=== PATIENT | male | born 1955 | race African-American/Black ===

== ENCOUNTER 2016-10-13 10:50 | Emergency (ER) | payer MEDICARE, OTHER ==
--- OUTSIDE RECORDS SUMMARY | 2016-10-13 11:53 | XMS REPORT | Continuity of Care Document ---
:1955 Author Organization [facility] ([facility]) Address [address] [place] [address] Phone [phone] Support Name Relationship Address Phone Unavailable Unavailable 506 08/01 [phone] [place] [address] Unavailable [place] Unavailable [phone] Care Team Providers Name Role Phone Leonel Medina Primary Care Provider [phone] Source Comments This disclosure is being made pursuant to the Care Everywhere program, applicable federal and state laws, and may not contain all informaitonavailable regarding this patient.[facility] ([facility]) Active Allergies and Adverse Reactions Allergen Noted Date Severity Reactions Comments Octreotide 08/12/2016 OTHER Abdominal pain, body sweats, near syncope Current Medications Prescription Sig. Disp. Refills Start Date End Date Status tiotropium Use 18 mcg by Active (SPIRIVA) 18 mcg inhalation daily. inhalation capsule fluticasone 50 use 2 Sprays into Active mcg/Actuation the nose daily as nasal spray needed. Indications: ALLERGIC RHINITIS magnesium Take 10 mL by Active hydroxide (MILK mouth daily as OF MAGNESIA needed. CONCENTRATE) Indications: 2,400 mg/10 mL CONSTIPATION suspension omeprazole 40 mg Take 1 capsule (40 40 capsule 3 05/22/2015 Active enteric coated mg total) by mouth capsule daily ALPRAZolam 0.5 mg Take 1 tablet (0.5 30 tablet 0 06/29/2015 Active tablet mg total) by mouth at bedtime as needed HYDROcodone-aceta Take 1 tablet by 0 10/22/2015 Active minophen 7.5-325 mouth every 8 mg per tablet hours as needed. potassium Take 10 mEq by Active chloride 10 mEq mouth as needed XR tablet (With bumetanide). SYMBICORT 160-4.5 Use 1 Puff by 5 01/04/2016 Active mcg/Actuation inhalation 2 times inhaler daily. bumetanide 2 mg Take 0.5 tablets 30 tablet 11 04/14/2016 Active tablet (1 mg total) by mouth every 3 days as needed. ,or as instructed by physician. ferrous sulfate Take 1 tablet (325 90 tablet 11 05/17/2016 Active 325 mg (65 mg mg total) by mouth iron) tablet 3 times daily. hydrALAZINE 25 mg Take 1 tablet (25 60 tablet 11 06/01/2016 Active tablet mg total) by mouth 2 times daily. amLODIPine 10 mg Take 1 tablet (10 30 tablet 11 06/13/2016 Active tablet mg total) by mouth daily. sildenafil 20 mg Take 2 tablets (40 180 tablet 3 06/27/2016 Active tablet mg total) by mouth 3 times daily. amoxicillin 500 Take 4 capsules 8 capsule 3 08/29/2016 Active mg capsule (2,000 mg) one hour before any dental exam or procedure. docusate 100 mg Take 100 mg by Active capsule mouth 2 times daily as needed. piperacillin-tazo Inject 13.5 g 09/09/2016 Active bactam (ZOSYN) intravenously 13.5 g continuous every 24 hours. infusion aspirin 325 mg Take 1 tablet (325 90 tablet 2 09/09/2016 Active tablet mg total) by mouth daily. warfarin 4 mg As directed by Active tablet ACMS ondansetron 4 mg Take 4 mg by mouth 5 08/26/2016 Active tablet every 8 hours as needed. warfarin 4 mg Take 2 tablets (8 60 tablet 0 08/19/2016 09/20/19 Discontinued tablet mg total) by mouth 17 every evening. Active Problems Patient Care Coordination Note GOALS OF CARE AND TREATMENT PREFERENCES Patients Communication Style/Preference per patient: Diagnosis:Thrombosed LVAD placement 11-27-14 Prognosis: Days to weeks to months Goal(s) of Care: Undecided at this time. Patient and family are trying to process terminal list of thrombosed LVAD and reality that there are no other treatment options at this time Is the patient an inpatient? Yes. How did the team arrive at the current code status? spoke with patient and family Code status is: Full code Additional remarks: Medical team has told patient that resuscitation would cause more harm than benefit but patient still wishes to BE full code Patient unable to have compressions because of LVAD patient also has defibrillator placed Patient able to make own decisions?: Yes Additional comments: patient would like to go home and care but without support of hospice this will need to be continued discussion Patient's Goals of Care and communication style preference were communicated to attending staff. GOALS OF CARE AND TREATMENT PREFERENCES Diagnosis: Stage D, Class 4 HF due to nonischemic cardiomyopathy Prognosis: Months to a year without MCS Goal(s) of Care: To live longer to be able to see his grandchildren grow up and graduate highschool. He would like to be less symptomatic and be able to stay out of the hospital. He realizes this is a disease that will likely lead to his . He was hoping to live at least another 10 years. He wants to spend as much time with his who he adores. Problem Noted Date Elevated LDH 09/08/2016 Pseudomonas infection 04/29/2016 Overview: 04/13 - rare pseudomonas of driveline culture AVM (arteriovenous malformation) of small bowel, acquired with hemorrhage Anemia due to blood loss, acute 09/15/2015 Syncope 09/14/2015 Chronic gastrointestinal hemorrhage 08/30/2015 Biventricular ICD (implantable cardioverter-defibrillator) in place - 2014 [employer] Overview: Programmed DDD 50- 130 bpm, RV pacing only. Implant Physician: Dr. Macias Implant date: 07/28/15 Hypocalcemia 02/07/2015 Hypoalbuminemia due to protein-calorie malnutrition 02/07/2015 Severe protein-calorie malnutrition 02/07/2015 Left ventricular assist device (LVAD) complication 12/16/2014 Overview: Admit 12/16/14 for Intermacs Related complication - Possible VAD thrombosis History of DVT (deep vein thrombosis) 12/05/2014 Overview: Dx by Venous doppler on 09/16/14: Right IJ DVT LVAD (left ventricular assist device) present 12/01/2014 Long-term (current) use of anticoagulants, INR goal 1.8 - 2.5 (New goal 2014 set on 02/21/2015) ACC/AHA stage D heart failure 11/05/2014 Overview: On home Dobutamine at 5 mcg/kg/min for RV failure post LVAD implantation; off now. Restrictive lung disease 11/05/2014 Overview: Dx by PFT on 04/13 Pulmonary hypertension due to left heart disease 04/15/2014 Medication intolerance 04/15/2014 Overview: Losartan, spironolactone, BiDil - renal failure, hypotension (due to low cardiac output, cardiorenal syndrome) Anxiety 04/15/2014 LBBB (left bundle branch block) 04/15/2014 Gout 04/15/2014 Overview: Not crystal proven. His serum uric acid was 9.3 in October 2012. He was taking allopurinol 200 mg daily at home (per PCP). Tobacco use disorder 04/15/2014 Paroxysmal ventricular tachycardia 01/14/2014 Hepatitis C 08/15/2013 Overview: Formatting of this note may be different from the original. Prescribed Regimen: Sofosbuvir (Sovaldi) and Simeprevir (Olysio) Hepatitis C Genotype: 1a Duration of Therapy: 12 weeks Start Date: 12/09/13 End Date: 03/05/14 Laboratory Monitoring HCV RNA: HCV QUANT, IU/mL (IU/mL) Date Value 02/24/2014 (External) NOT DETECTABLE 02/17/2014 (External) NOT DETECTABLE 02/11/2014 (External) <15 02/04/2014 (External) NOT DETECTABLE 12/09/2013 [id number] 10/31/2013 [id number] HCV QUANT, LOG IU/mL (LOG IU) Date Value 02/11/2014 (External) <1.18 02/04/2014 (External) NOT DETECTABLE 12/09/2013 7.14 10/31/2013 7.31 CKD (chronic kidney disease) stage 3, GFR 30-59 ml/min 08/15/2013 Hypertension, benign 02/12/2013 Chronic combined systolic and diastolic heart failure 08/07/2012 Non-ischemic cardiomyopathy 07/12/2011 Overview: Patient reports "heart disease" since 1993 First low LVEF noted by RNV 04/2001=40-45% Heavy exposure to IV cocaine; not since 2003 by report 04/2011 SPECT Large inferior myocardial scar, moderate anteroapical myocardial scar, LVEF 22% RHC 04/09/2014 ([facility]): RA 12, RV 70/9/20, PA 75/34/52, PCW 30, Ao 104/69, PAsat 36%, TCO/I 1.75/0.87, SALOME/I 2.63/1.3 Coronary Angiogram 04/09/2014 ([facility]): Normal epicardial coronary arteries MUGA 04/08/2014 ([facility]): LVEF 17% Resolved Problems Problem Noted Date Resolved Date Subtherapeutic international normalized ratio (INR) 04/05/2016 04/09/2016 Melena 03/24/2016 08/08/2016 Acute upper GI bleed 09/15/2015 10/27/2015 Gastrointestinal hemorrhage 08/24/2015 08/30/2015 Acute GI bleeding 06/15/2015 06/19/2015 Chronic cholecystitis 05/06/2015 05/22/2015 Melena 05/02/2015 05/22/2015 Acute blood loss anemia 05/02/2015 06/19/2015 Acute cholecystitis 02/13/2015 06/15/2015 RUQ abdominal pain 02/12/2015 06/15/2015 Hypokalemia 02/07/2015 05/22/2015 Hyperkalemia 02/06/2015 02/07/2015 Metabolic acidosis, normal anion gap (NAG) 02/06/2015 02/07/2015 Syncope and collapse 02/06/2015 03/23/2015 Hospice care 12/25/2014 02/07/2015 Leukocytosis, unspecified 12/17/2014 02/07/2015 Increased anion gap metabolic acidosis 12/17/2014 02/07/2015 Metabolic alkalosis 12/17/2014 02/07/2015 Acute on chronic systolic CHF (congestive heart failure) 12/17/20142014 Palliative care encounter 12/17/2014 02/07/2015 Goals of care, counseling/discussion 12/17/2014 02/07/2015 ADAM (acute kidney injury) 12/13/2014 02/07/2015 Hyperkalemia 12/01/2014 12/13/2014 Overview: Monitor and treat Hyponatremia 12/01/2014 02/07/2015 Overview: monitor Acute blood loss anemia 12/01/2014 02/07/2015 Overview: Monitor and transfuse as necessary Cardiogenic shock 12/01/2014 12/13/2014 Overview: Continue with inotropic support Encounter for screening colonoscopy 11/18/2014 02/07/2015 Acute on chronic systolic congestive heart failure 11/13/2014 02/07/2015 Supratherapeutic INR 11/13/2014 12/13/2014 Acute deep venous thrombosis 11/05/2014 11/06/2014 Overview: DVT of Rt IJ - Dx by Vascular US on 09/14. 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 No formal assessment for PAH Most Recent Encounters Date Type Specialty Providers Description 10/11/2016 Telephone Heart and Vascular Bere Cleaning, Dx: Anemia due to RN blood loss, acute (Primary Dx) 10/10/2016 Telephone Heart and Vascular Artis Castillo RN Dx: Anemia due to blood loss, acute (Primary Dx) 10/10/2016 Telephone Pharmacy Yamilex Delcid Dx: LVAD (left L, RPH ventricular assist device) present (Primary Dx) 10/07/2016 Office Visit Med Infectious Jeyson Cerda, Dx: LVAD (left Disease MD ventricular assist device) present (Primary Dx) 10/07/2016 Telephone Business Librarian Genesis Amador, Chief Comp: Home Care MEDIA SERVICES COORDINATOR 10/07/2016 Telephone Med Infectious Jeyson Cerda, Chief Comp: Disease MD Medication Management 10/06/2016 Telephone Pharmacy Yamilex Delcid Dx: LVAD (left L, RPH ventricular assist device) present (Primary Dx) 10/03/2016 Telephone Pharmacy Giselle Rankin Dx: LVAD (left E, RPH ventricular assist device) present (Primary Dx) 10/03/2016 Telephone Heart and Vascular Angella Craig Chief Comp: Appointment Info 10/03/2016 Telephone Pharmacy Shahla Berger Dx: LVAD (left M ventricular assist device) present 09/30/2016 Telephone Heart and Vascular Marj Dozier Chief Comp: Review Of L, RN Concerns 09/29/2016 Telephone Pharmacy Giselle Rankin Dx: LVAD (left E, RPH ventricular assist device) present (Primary Dx) 09/27/2016 Telephone Heart and Vascular Marj Dozier RN 09/26/2016 Office Visit Heart and Vascular Sunshine Quintero Dx: LVAD (left J, BOND MANAGER ventricular assist device) present 09/26/2016 [facility] Heart and Vascular Sunshine Quintero Dx: Non-ischemic Encounter J, BOND MANAGER cardiomyopathy Default, Other (Primary Dx) Clara Azul MD 09/26/2016 Office Visit Heart and Vascular Rishi Parada MD Dx: Left ventricular assist device (LVAD) complication, subsequent encounter (Primary Dx) 09/26/2016 Telephone Pharmacy Giselle Rankin Dx: LVAD (left E, RPH ventricular assist device) present (Primary Dx) 09/23/2016 Telephone Pharmacy Giselle Rankin Dx: LVAD (left E, RPH ventricular assist device) present (Primary Dx) 09/20/2016 Telephone Pharmacy Liv Gomez Dx: LVAD (left L, RPH ventricular assist device) present (Primary Dx) 09/19/2016 Telephone Heart and Vascular Artis Castillo RN Dx: LVAD (left ventricular assist device) present (Primary Dx) 09/19/2016 Telephone Pharmacy Yamilex Delcid Dx: LVAD (left L, RPH ventricular assist device) present (Primary Dx) 09/19/2016 Telephone Heart and Vascular Angella Craig Chief Comp: Appointment Info 09/16/2016 Telephone Pharmacy Stephanie Green Dx: LVAD (left RPH ventricular assist device) present (Primary Dx) 09/13/2016 [facility] Radiology Andres Zuleta MD Chief Comp: Patient Encounter Reported Reason For Visit 09/12/2016 Hospital Radiology Andres Zuleta MD Chief Comp: Patient Encounter Reported Reason For Visit 09/12/2016 [facility] Heart and Vascular Sunshine Quintero Dx: Pseudomonas Encounter J, BOND MANAGER infection 09/12/2016 Telephone Pharmacy Stephanie Green Dx: LVAD (left RPH ventricular assist device) present (Primary Dx) 09/12/2016 Telephone Heart and Vascular Bere Cleaning, Chief Comp: service station helper Question 09/12/2016 Orders/Notes Heart and Vascular Marj Dozier Dx: Non- ischemic Tanner, RN cardiomyopathy (Primary Dx) 09/12/2016 Orders Only Radiology Peng Gamboa Dx: Anemia due to MD Radha blood loss, acute 09/06/2016 [facility], Chief Comp: Patient Encounter MD Reported Reason For Zaire Jordan, Visit Cecilia Jasso DO 09/05/2016 - [facility], Dx: Left ventricular 09/09/2016 Encounter Inpatient - Adult MD assist device (LVAD) Zaire Jordan, complication, initial MD encounter (Primary Sistla, Dx) MD Marybeth 09/05/2016 Office Visit Gui Conway DDS Chief Comp: Patient Reported Reason For Visit 09/05/2016 Office Visit Heart and Vascular Sunshine Quintero Dx: LVAD (left J, BOND MANAGER ventricular assist Clara Arndt, device) present 09/01/2016 Telephone Pharmacy Liv Gomez Dx: LVAD (left L, RPH ventricular assist device) present (Primary Dx) 08/31/2016 Office Visit Heart and Vascular Sunshine Quintero Dx: Left ventricular J, BOND MANAGER assist device (LVAD) complication, subsequent encounter 08/29/2016 Refill Heart and Vascular Artis Castillo RN Dx: Need for SBE (subacute bacterial endocarditis) prophylaxis (Primary Dx) 08/29/2016 Telephone Pharmacy Giselle Rankin Dx: LVAD (left E, RPH ventricular assist device) present (Primary Dx) 08/26/2016 Telephone Heart and Vascular Marj Dozier Chief Comp: Follow-up Tanner RN 08/25/2016 Telephone Pharmacy Yamilex Delcid Dx: LVAD (left L, RPH ventricular assist device) present (Primary Dx) 08/24/2016 Telephone Heart and Vascular Bere Cleaning, Chief Comp: Follow-up RN 08/24/2016 Telephone Heart and Vascular Bere Cleaning, Chief Comp: python django developer Results 08/24/2016 Telephone Pharmacy Giselle Rankin Dx: LVAD (left E, RPH ventricular assist device) present (Primary Dx) 08/23/2016 Nurse Triage General Care Candi Roe Chief Comp: IP 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, 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 Follow-up Call 08/23/2016 Telephone Heart and Vascular Bere Cleaning, Chief Comp: Follow-up RN 08/22/2016 Telephone Pharmacy Giselle Rankin Dx: LVAD (left E, RPH ventricular assist device) present (Primary Dx) 08/17/2016 Pharmacy Visit 08/13/2016 Telephone Heart and Vascular Bere Cleaning, Chief Comp: RN Disruptive Behavior 08/11/2016 - [facility] Randy Miller Dx: Anemia due to 08/19/2016 Encounter Inpatient - Adult MD Isatu blood loss, acute AdhadDaniel guo, (Primary Dx) Gabriella Washington MD 08/11/2016 Office Visit Dentistry Dx: LVAD (left ventricular assist device) present 08/11/2016 Office Visit Heart and Vascular Clara Arndt, Dx: LVAD (left MD ventricular assist Schadler, Sunshine device) present TEODORA Baugh 08/11/2016 Telephone Heart and Vascular Bere Cleaning, Chief Comp: Patient RN Concern 08/10/2016 Nurse Triage General [facility] Leila Heard, Chief Comp: 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 Follow-up Call 08/09/2016 Telephone Pharmacy Giselle Rankin Dx: LVAD (left E, RPH ventricular assist device) present (Primary Dx) 08/09/2016 Telephone Heart and Vascular Bere Cleaning, Dx: LVAD (left RN ventricular assist device) present (Primary Dx) 08/08/2016 Nurse Triage Med GI/Hepatology Ramirez Brewer Chief Comp: Post -op V, RN Follow-up Call 08/08/2016 Pharmacy Visit 08/07/2016 Telephone Heart and Vascular Artis Castillo RN Chief Comp: Other 08/04/2016 - [facility] Steve Walter, Dx: Non-ischemic 08/08/2016 Encounter Inpatient - Adult cardiomyopathy Dina (Primary Dx) Nieves Prieto MD 08/03/2016 Telephone Heart and Vascular Bere Cleaning, Dx: Anemia due to RN blood loss, acute (Primary Dx) 08/02/2016 Telephone Pharmacy Giselle Rankin Dx: LVAD (left E, RPH ventricular assist device) present (Primary Dx) 07/29/2016 Telephone Pharmacy Giselle Rankin Dx: LVAD (left E, RPH ventricular assist device) present (Primary Dx) 07/29/2016 Telephone Heart and Vascular Bere Cleaning, Chief Comp: python django developer Results 07/27/2016 Office Visit Heart and Vascular Sunhsine Quintero Dx: LVAD (left J, BOND MANAGER ventricular assist Cotarlan, device) present MD Kwesi 07/27/2016 Telephone Pharmacy Giselle Rankin Dx: LVAD (left E, RPH ventricular assist device) present (Primary Dx) 07/27/2016 Refill Pharmacy Giselle Rankin Dx: LVAD (left E, RPH ventricular assist device) present (Primary Dx) 07/21/2016 Telephone Pharmacy Yamilex Delcid Dx: LVAD (left L, RPH ventricular assist device) present (Primary Dx) 07/18/2016 Telephone Pharmacy Giselle Rankin Dx: LVAD (left E, RPH ventricular assist device) present (Primary Dx) 07/18/2016 Telephone Heart and Vascular Marlene Herrmann, Dx: Long-term RN (current) use of anticoagulants, INR goal 1.8 - 2.5 (New goal set on 02/21/2015) (Primary Dx) Immunizations Name Dates Previously Given Next Due Influenza 05/10/2012,07/15/2005 Influenza, quadrivalent PF 05/19/2016,05/06/2015 Influenza, unspecified 05/31/2012 Pneumococcal, unspecified 06/01/2015,04/30/2011 Td, adsorbed 12/21/2000 Tetanus Toxoid, unspecified 07/31/2006 Social History Tobacco Use Types Packs/Day Years Used Date Current Some Day Smoker Cigarettes 0.25 23 Smokeless Tobacco: Never Used Tobacco Cessation:Counseling Given: Yes Comments: Alcohol Use Drinks/Week oz/Week Comments No Last Filed Vital Signs Vital Sign Reading Time Taken Blood Pressure 105/84 10/07/2016 9:48 AM COMPUTER CONSULTANT Pulse 80 10/07/2016 9:48 AM COMPUTER CONSULTANT Temperature 36.3 C (97.3 F) 10/07/2016 9:48 AM COMPUTER CONSULTANT Respiratory Rate 18 09/09/2016 9:00 AM COMPUTER CONSULTANT Height 1.778 m (5' 10") 09/05/2016 8:29 PM COMPUTER CONSULTANT Weight 85.5 kg (188 lb 7.9 oz) 10/07/2016 9:48 AM COMPUTER CONSULTANT Body Mass Index 27.05 10/07/2016 9:48 AM COMPUTER CONSULTANT Oxygen Saturation 98% 09/26/2016 9:29 AM COMPUTER CONSULTANT Plan of Care Date Type Specialty Providers Description 10/24/2016 Appointment Heart and Vascular Sunshine Quintero Dx: LVAD (left J, BOND MANAGER ventricular assist [address] device) [place] [address] [phone] (Fax) 10/24/2016 Hospital Encounter Radiology Chief Comp: Patient Reported Reason For Visit 03/13/2017 Appointment Dentistry Chief Comp: Patient Reported Reason For Visit Health Maintenance Due Date Last Done Comments HCV Screening 1955 Hepatitis B Vaccine (1 of 3 1955 - Primary Series) Tdap Vaccine 1967 MMR Vaccine 1974 Pneumococcal Vaccine (1 of 1 1975 - PPSV23) Zoster Vaccine 2016 Prostate Cancer Screening 05/06/2016 05/06/2014 HCC Annual Coding End-Stage 07/31/2016 Liver Disease Td Vaccine 07/31/2016 07/31/2006, 12/21/2000 Lipid Disorder Screening 01/14/2020 01/13/2015 Colonoscopy 02/10/2025 02/10/2015, 11/24/2014 Influenza Vaccine: Seasonal Completed 05/19/2016, Additional history exists 05/06/2015, 05/31/2012 Results from Last 3 Months EXTERNAL CBC WITH DIFFERENTIAL (10/13/2016)Only the most recent of5 resultswithin the time period is included. Component Value Range Ext WBC Count 9.2 K/MM3 Ext RBC Count 2.76 M/MM3 Ext Hemoglobin 6.7 G/DL Ext Hematocrit 23.1 % Ext MCV (Mean Corpuscular Volume) 83.7 Ext MCH-Mean Corpuscular Hemoglobin 24.3 Ext MCHC-Mean Corpuscular Hgb Concentration 29.0 Ext Platelet Count 143 1-1001 K/MM3 Ext RDW-Red Cell Distribution Width 18.9 Ext Neutrophils 78.5(A) 100-49785 /MM3 Ext Lymphocytes 13.1(A) 100-82814 /MM3 EXTERNAL HEMOGLOBIN (10/11/2016)Only the most recent of6 resultswithin the time period is included. Component Value Range Ext Hemoglobin 10.2 G/DL EXTERNAL LIVER PANEL (10/10/2016)Only the most recent of2 resultswithin the time period is included. Component Value Range Ext Albumin 3.7 3.4-4.8 G/DL Ext ALP 123 40-129 U/L Ext AST 21 0-37 U/L Ext ALT 20 0-35 U/L Ext Bilirubin, Direct 0.1 0-0.2 MG/DL Ext Bilirubin, Total 0.4 0.2-1.0 MG/DL Ext Total Protein 8.4(A) 6.0-8.0 G/DL EXTERNAL BASIC METABOLIC PANEL (W/CALCIUM TOTAL) (10/10/2016)Only the most recent of2 resultswithin the time period is included. Component Value Range Ext Calcium 9.2 6-13 MG/DL Ext CO2 28.4 24-32 MEQ/L Ext Chloride 106 95-107 MEQ/L Ext Creatinine 1.10 0.7-1.4 MG/DL Ext Glucose 71 65-99 MG/DL Ext Potassium 5.0 3.5-5.0 MEQ/L Ext Sodium 144 135-145 MEQ/L Ext BUN 21.8(A) 10-20 MG/DL EXTERNAL INR (10/10/2016)Only the most recent of21 resultswithin the time period is included. Component Value Range Ext INR 2.3 DIFFERENTIAL (09/26/2016 9:27 AM)Only the most recent of3 resultswithin the time period is included. Component Value Range % Neutrophils-Auto Diff 77.7 % Neutrophils-Auto Diff 5340 7256-4423 /MM3 % Lymphocytes-Auto Diff 12.6 % Lymphocytes-Auto Diff 870(L) 875-3300 /MM3 % Monocytes-Auto Diff 8.3 % Monocytes-Auto Diff 570 130-860 /MM3 % Eosinophils-Auto Diff 0.7 % Eosinophils-Auto Diff 50 40-390 /MM3 % Basophils 0.6 % Basophils-Auto Diff 40 10-136 /MM3 % Immature Granulocytes-Auto Diff 0.1 % Immature Granulocytes-Auto Diff 10 /MM3 Specimen Whole Blood CBC (COMPLETE BLOOD COUNT) (09/26/2016 9:27 AM)Only the most recent of3 resultswithin the time period is included. Component Value Range WBC Count 6.9 3.7-10.5 K/MM3 RBC Count 4.56 4.50-6.20 M/MM3 Hemoglobin 11.1(L) 13.2-17.7 g/dL Hematocrit 38(L) 40-52 % MCV (Mean Corpuscular Volume) 84 82-99 FL MCH (Mean Corpuscular Hemoglobin) 24(L) 25-35 PG MCHC (Mean Corpuscular Hemoglobin Concentration) 29(L) 32-36 % Platelet Count 177 150-400 K/MM3 RBC Dist Width-STD 59.4(H) 35.1-43.9 FL RBC Distrib Width 19.7(H) 9.0-14.5 % Nucleated RBC 0 /100 WBC Specimen Whole Blood BLOOD CELL MORPHOLOGY (09/26/2016 9:27 AM)Only the most recent of10 resultswithin the time period is included. Component Value Range Schistocytes 1+ Tear Drop 1+ Large Platelet Present Giant Platelets Present Specimen Whole Blood PT/INR (PROTHROMBIN TIME/INR) VENOUS (09/26/2016 9:27 AM)Only the most recent of24 resultswithin the time period is included. Component Value Range PT (Prothrombin Time) 17(H) 9-12 secs INR 1.7 <4.0 Specimen Blood LACTATE DEHYDROGENASE (LDH) (09/26/2016 9:27 AM)Only the most recent of21 resultswithin the time period is included. Component Value Range LDH 340(H) 135-225 U/L Specimen Blood HEPATIC FUNCTION PANEL (09/26/2016 9:27 AM)Only the most recent of2 resultswithin the time period is included. Component Value Range Albumin 4.2 3.4-4.8 g/dL ALP 127 40-129 U/L Bilirubin Total 0.4 <=1.2 mg/dL Bilirubin, Direct <0.2 0.0-0.2 mg/dL AST 25Comment: 0-40 U/L Adult reference ranges updated on 06/25/13 at 830am ALT 14Comment: 0-41 U/L The upper limit of normal for alanine aminotransferase (ALT) reference ranges for adults is controversial with some authorities recommending limit as low as 30 U/L for males and 19 U/L for females. Th ere is increased incidence of subclinical liver disease (e.g., early steatohepatitis) in patients with ALT values in the range of 31-41 U/L for males and 20-33 U/L for females. ALT values should alway s be interpreted in conjunction with clinical history, physical examination findings, and, if applicable, data from other diagnostic tests. Total Protein 8.8(H) 6.0-8.0 g/dL Specimen Blood BASIC METABOLIC PANEL W/ CALCIUM (CHEM 8) (09/26/2016 9:27 AM)Only the most recent of15 resultswithin the time period is included. Component Value Range Sodium 139 135-145 mEq/L Potassium 4.7 3.5-5.0 mEq/L Chloride 103 95-107 mEq/L CO2 25 22-29 mEq/L Anion Gap 11 8-18 mEq/L BUN 10 10-20 mg/dL Creatinine 1.1Comment: 0.6-1.2 mg/dL Creatinine switched to enzymatic method on 12/07/2010.GFR equation switched to IDMS-traceable MDRD equation on 12/07/2010. Calculated GFR values are not valid in clinical settings where serum creatinine is changing. Glucose 110(H)Comment: 65-99 mg/dL The Expert Committee on the Diagnosis and Classification of Diabetes has defined impaired fasting glucose as greater than or equal to 100 mg/dL but less than 126 mg/dL.(Diabetes Care 28 (Suppl 1)S41,2005) Calcium 9.4 8.5-10.5 mg/dL Calculated GFR 83 >60 mL/min/1.73 m2 Specimen Blood CBC WITH DIFFERENTIAL (09/26/2016 9:27 AM)Only the most recent of3 resultswithin the time period is included. Specimen Whole Blood Narrative The following orders were created for panel order CBC WITH DIFFERENTIAL. Procedure Abnormality Status --------- ------ CBC (COMPLETE BLOOD COUNT)[[id number]] AbnormalFinal result DIFFERENTIAL[[id number]] AbnormalFinal result Please view results for these tests on the individual orders. EXTERNAL LACTATE DEHYDROGENASE (LD, LDH) (09/24/2016)Only the most recent of6 resultswithin the time period is included. 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 Narrative Procedure: NUC ABSCESS LOCAL SPECT AND CT, IN-111 WBC ([id number]) Study: WBC Scan. Indication: LVAD drive line infection. Evaluate for infection of VAD. Radiopharmaceutical:Indium-111 labelled leukocytes 0.54 mCi IV on 09/12/2016 at 1505 hrs. Technique: Planar and SPECT-CT images of the chest and abdomen were obtained 24 hours after the IV administration of indium-111 labeled WBCs. Findings: There is abnormal uptake of labeled WBCs along the drive line in the right upper quadrant with associated soft tissue thickening on CT scan. No abnormal accumulation of labeled WBCs around the pump of the LVAD. Procedure Note Julio, Incoming Imaging Results - MonSep 14, 2016 8:54 AM COMPUTER CONSULTANT Procedure: NUC ABSCESS LOCAL SPECT AND CT, IN-111 WBC ([id number]) Study: WBC Scan. Indication: LVAD drive line infection. Evaluate for infection of VAD. Radiopharmaceutical: Indium-111 labelled leukocytes 0.54 mCi IV on 09/12/2016 at 1505 hrs. Technique: Planar and SPECT-CT images of the chest and abdomen were obtained 24 hours after the IV administration of indium-111 labeled WBCs. Findings: There is abnormal uptake of labeled WBCs along the drive line in the right upper quadrant with associated soft tissue thickening on CT scan. No abnormal accumulation of labeled WBCs around the pump of the LVAD. 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 PICC LINE REQUEST (09/12/2016 3:33 PM) Lidia Singer RN 09/12/20163:33 PM Procedure PICC Line Insertion, 09/09/2016 Consent for Procedure The procedure was explained to the patient including risks and benefits.Patient signed consent form and wishes to proceed. A time out was performed at bedside. Location: Patient room Description of Procedure The can bander operator performed proper hand hygiene and utilized maximum sterile barrier precautions. The patient's skin was prepped with CHG and draped with a large body drape in the usual sterile fashion.Using ultrasound guidance, the right brachial vein was identified and assessed for patency.3 cc's of 1% lidocaine was injected into the skin.Using the Seldinger technique and ultrasound guidance, the vein was entered with a 21 gauge micropuncture needle and the wire threaded into the vein.A 39 cm 4 Fr single lumen Bard Power PICC SOLO catheter (Lot number [id number]) was inserted into the tear-away sheath.Blood was aspirated from the lumen and the catheter was easily flushed with saline, secured into place at the 0 cm hash yancy, and dressed with a sterile CHG tegaderm. The distal tip was confirmed in the caval atrial junction.PICC line placement was confirmed by chest x-ray.PICC line is ready for use. Procedure was successful at bedside. Complications There were no immediate complications. Staff Lidia Adams, RN-BSN Nurse Clinical Specialist PICC Service CBC (COMPLETE BLOOD COUNT) (09/12/2016 11:21 AM)Only the most recent of20 resultswithin the time period is included. Component Value Range WBC Count 7.0 3.7-10.5 K/MM3 RBC Count 4.38(L) 4.50-6.20 M/MM3 Hemoglobin 10.6(L) 13.2-17.7 g/dL Hematocrit 37(L) 40-52 % MCV (Mean Corpuscular Volume) 83 82-99 FL MCH (Mean Corpuscular Hemoglobin) 24(L) 25-35 PG MCHC (Mean Corpuscular Hemoglobin Concentration) 29(L) 32-36 % Platelet Count 146(L) 150-400 K/MM3 RBC Dist Width-STD 58.5(H) 35.1-43.9 FL RBC Distrib Width 19.6(H) 9.0-14.5 % Nucleated RBC 0 /100 WBC Specimen Whole Blood CHEST - AP/PA (09/09/2016 12:04 PM) Impressions Findings/Impression: Moderate cardiomegaly with normal pulmonary vasculature and clear lungs is present. The right PICC terminates at atrial caval junction. Right atrial and biventricular pacing leads are in stable and appropriate position. The visible portion of the LVAD is without gross complication. Narrative Procedure: CHEST - AP/PA Technique: Portable AP chest radiograph Comparison: Chest radiograph(s) dated: 12/23/2014 to 06/06/2016. Clinical Indication: Post PICC placement Procedure Note Julio, Incoming Imaging Results - MonSep 09, 2016 12:24 PM COMPUTER CONSULTANT Procedure: CHEST - AP/PA Technique: Portable AP chest radiograph Comparison: Chest radiograph(s) dated: 12/23/2014 to 06/06/2016. Clinical Indication: Post PICC placement IMPRESSION Findings/Impression: Moderate cardiomegaly with normal pulmonary vasculature and clear lungs is present. The right PICC terminates at atrial caval junction. Right atrial and biventricular pacing leads are in stable and appropriate position. The visible portion of the LVAD is without gross complication. ASPIRIN REACTIVITY UNITS (09/09/2016 6:11 AM) Component Value Range Aspirin Reactivity Units 438(L)Comment: 620-672 RU Values less than 550 ARU detects platelet dysfunction consistent with aspirin therapy Specimen Blood MAGNESIUM (09/09/2016 6:11 AM)Only the most recent of11 resultswithin the time period is included. Component Value Range Magnesium 1.9 1.5-2.9 mg/dL Specimen Blood HEMOGLOBIN, PLASMA (09/09/2016 6:11 AM)Only the most recent of15 resultswithin the time period is included. Component Value Range Plasma Hemoglobin 13(H) 0-5 mg/dL Specimen Blood BLOOD CULTURE (09/08/2016 2:53 PM)Only the most recent of6 resultswithin the time period is included. Component Value Range Blood Culture No Growth Specimen Blood - Blood, Venipuncture US ABDOMEN LIMITED (09/08/2016 1:32 PM) Impressions Findings/Impression: Soft tissue edema around the LVAD driveline. No fluid collections visualized. --- Final --- Narrative [facility] Department of Radiology Ultrasound Division [address] [place] [address] ULTRASOUND REPORT NAME:JAMI SANDERS Date of Service: 09/08/2016 MRN NO.: [id number] Review Date: 09/08/2016 Patient's : 1955Resident/Tech: shady Buitrago Patient's Age: 61 years Referring MD:MARYBETH COOK Indication: swelling around driveline site (for LVAD), please evaluate for abscess/infection Technique: Abdominal Limited Grayscale Ultrasound. Procedure Note Julio, Incoming Imaging Results - Brittnee Sep 08, 2016 2:17 PM [facility] Department of Radiology Ultrasound Division [address] [place] [address] ULTRASOUND REPORT NAME: JAMI SANDERS Date of Service: 09/08/2016 MRN NO.: [id number] Review Date: 09/08/2016 Patient's : 1955 Resident/Tech: [email or web address] Roel Buitrago Patient's Age: 61 years Referring MD: MARYBETH COOK Indication: swelling around driveline site (for LVAD), please evaluate for abscess/infection Technique: Abdominal Limited Grayscale Ultrasound. IMPRESSION Findings/Impression: Soft tissue edema around the LVAD driveline. No fluid collectionsvisualized. --- Final --- AEROBIC CULTURE, ROUTINE (09/08/2016 10:45 AM)Only the most recent of2 resultswithin the time period is included. Component Value Range Culture Moderate Pseudomonas aeruginosa(A) Culture Rare Pseudomonas aeruginosa #2(A) Gram Stain Rare Gram Negative Rods Gram Stain Moderate PMN's Specimen Culture - Abscess, Swab (Suboptimal) Narrative Identification performed by MALDI-TOF mass spectrometry (MS).The performance characteristics of MALDI-TOF MS were determined by the [facility].It has not been cleared orApproved by the FDA. The FDA has determined that such clearance or approval is not necessary.This test is for clinical purposes. It should not be regarded as investigational or for research.The laboratory is certified under the Clinical Laboratory Improvement Amendments of 1988 (CLIA) as qualified to perform high complexity clinical laboratory testing. Organism Antibiotic Method Susceptibility Pseudomonas aeruginosa CEFEPIME <=4: Susceptible Pseudomonas aeruginosa CIPROFLOXACIN <=0.5: Susceptible Pseudomonas aeruginosa GENTAMICIN <=2: Susceptible Pseudomonas aeruginosa MEROPENEM <=1: Susceptible Pseudomonas aeruginosa PIPERACILLIN/TAZOBACTAM <=16: Susceptible Pseudomonas aeruginosa TOBRAMYCIN <=4: Susceptible Pseudomonas aeruginosa #2 CEFEPIME <=4: Susceptible Pseudomonas aeruginosa #2 CIPROFLOXACIN 1: Susceptible Pseudomonas aeruginosa #2 GENTAMICIN <=2: Susceptible Pseudomonas aeruginosa #2 MEROPENEM <=1: Susceptible Pseudomonas aeruginosa #2 PIPERACILLIN/TAZOBACTAM <=16: Susceptible Pseudomonas aeruginosa #2 TOBRAMYCIN <=4: Susceptible PLATELET REACTIVITY UNITS(P2Y12) (09/08/2016 5:32 AM)Only the most recent of2 resultswithin the time period is included. Component Value Range Platelet Reactivity Units 302Comment: 194-418 RU Values less than the lower limit (194) are highly specific for a P2Y12 inhibitor effect Specimen Blood CT ABDOMEN& PELVIS W CONTRAST ([id number]) (09/07/2016 5:54 PM)Only the most recent of2 resultswithin the time period is included. Impressions Impression: 1. Interval increase in soft tissue thickening about the drive line in the right upper quadrant intra-abdominal wall with associated fat stranding and dermal thickening suggesting worsening inflammatory changes or infection. No fluid collections are demonstrated to suggest abscess. 2. 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 Results of the procedure were given to: PERSON CONTACTED:Dr. Brothers DATE: 09/07/2016 TIME CALLED:1851 hours PHONE/PAGER:[phone] This final report is in agreement with the critical and emergent preliminary findings reported by the supply chain vice president electronics inspector. Narrative Procedure: CT ABDOMEN & PELVIS W CONTRAST ([id number]) Clinical Indication: swelling around drive line site r/o infection vs hematoma Technique: CT exam of the abdomen and pelvis is performed following the uneventful administration of 97 cc Isovue-370 IV contrast. Comparison: CT dated 08/12/2069, 06/03/2016 Findings: Lower chest: Beam hardening artifact from the LVAD limits evaluation. Left ventricular assist device is in place. There is a mural thrombus within the aortic cannula, similar to prior. Cyst at the major fissure, stable. Stable diffuse ground glass opacities within the lung bases. Liver: Normal Bile ducts: Not dilated. Gallbladder: Cholecystectomy Pancreas: Normal Spleen: Small calcified granulomas. Adrenal glands: Normal Kidneys: Stable right upper pole nonobstructing renal stone. Stable hypodense lesions of the bilateral kidneys likely representing cysts. The hypodense lesion in left upper pole contains 2 small foci of calcification. Ureters: Normal Bladder: Not distended Aorta: Scattered atherosclerotic calcifications without aneurysmal dilatation. Retroperitoneum: No lymphadenopathy. Peritoneum: No ascites. Mesentery: No lymphadenopathy Stomach: Not distended. Small bowel: Not distended. Hyperdense objects within the small bowel, appear to beendoclips. Colon: Not distended. Appendix: Not identified. Extraperitoneal pelvis: No lymphadenopathy. Prostate: Mildly enlarged Abdominal wall: There is soft tissue thickening about the drive line of the LVAD, which is increased in size, measuring 3.5 cm in AP dimension (image 2-53), previously measuring 2.8 cm. This is been slowly increasing in size compared to 06/03/2016. Increased fat stranding within the subcutaneous soft tissues and dermal thickening. No fluid collections are demonstrated within the subcutaneous soft tissues. Bones: No acute fracture or destructive bone lesion. Mild scoliosis of lumbar spine with convexity towards left. Procedure Note Julio, Incoming Imaging Results - Brittnee Sep 08, 2016 1:38 PM COMPUTER CONSULTANT Procedure: CT ABDOMEN & PELVIS W CONTRAST ([id number]) Clinical Indication: swelling around drive line site r/o infection vs hematoma Technique: CT exam of the abdomen and pelvis is performed following the uneventful administration of 97 cc Isovue-370 IV contrast. Comparison: CT dated 08/12/2069, 06/03/2016 Findings: Lower chest: Beam hardening artifact from the LVAD limits evaluation. Left ventricular assist device is in place. There is a mural thrombus within the aortic cannula, similar to prior. Cyst at the major fissure, stable. Stable diffuse ground glass opacities within the lung bases. Liver: Normal Bile ducts: Not dilated. Gallbladder: Cholecystectomy Pancreas: Normal Spleen: Small calcified granulomas. Adrenal glands: Normal Kidneys: Stable right upper pole nonobstructing renal stone. Stable hypodense lesions of the bilateral kidneys likely representing cysts. The hypodense lesion in left upper pole contains 2 small foci of calcification. Ureters: Normal Bladder: Not distended Aorta: Scattered atherosclerotic calcifications without aneurysmal dilatation. Retroperitoneum: No lymphadenopathy. Peritoneum: No ascites. Mesentery: No lymphadenopathy Stomach: Not distended. Small bowel: Not distended. Hyperdense objects within the small bowel, appear to be endoclips. Colon: Not distended. Appendix: Not identified. Extraperitoneal pelvis: No lymphadenopathy. Prostate: Mildly enlarged Abdominal wall: There is soft tissue thickening about the drive line of the LVAD, which is increased in size, measuring 3.5 cm in AP dimension (image 2-53), previously measuring 2.8 cm. This is been slowly increasing in size compared to 06/03/2016. Increased fat stranding within the subcutaneous soft tissues and dermal thickening. No fluid collections are demonstrated within the subcutaneous soft tissues. Bones: No acute fracture or destructive bone lesion. Mild scoliosis of lumbar spine with convexity towards left. IMPRESSION Impression: 1. Interval increase in soft tissue thickening about the drive line in the right upper quadrant intra-abdominal wall with associated fat stranding and dermal thickening suggesting worsening inflammatory changes or infection. No fluid collections are demonstrated to suggest abscess. 2. 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 Results of the procedure were given to: PERSON CONTACTED: Dr. Brothers DATE: 09/07/2016 TIME CALLED: 1851 hours PHONE/PAGER: [phone] This final report is in agreement with the critical and emergent preliminary findings reported by the supply chain vice president electronics inspector. THROMBOELASTOGRAPH (TEG) (09/06/2016 10:17 PM) Component Value Range Initial Clot Formation 5.3 5.0-10.0 mins Kinetics 1.2 1.0-3.0 mins Clot Angle 73.2(H) 53.0-72.0 Degrees Maximum Amplitude 73.1(H) 50.0-70.0 mm LY30 0.0 0.0-8.0 % Coagulation Index 2.9 -3.0-3.0 Clot Strength G 13.6(H) 4.5-11.0 Kd/cm2 Specimen Blood ENDOSCOPY CAPSULE (09/02/2016 4:00 PM) Raymundo Palacio MD 09/02/20164:00 PM ENDOSCOPY CAPSULE DATE OF PROCEDURE: 08/12/15 OPERATION/PROCEDURE: Video Capsule Endoscopy INDICATIONS: melena ATTENDING STAFF: Aurleia Martinez MD FELLOW: Dada Watkins D.O. REFERRING PHYSICIAN:Aurelia Martinez CONSENT FOR OPERATION OR PROCEDURE: Informed consent was obtained from the patient. HISTORY OF PRESENT ILLNESS: Jami Anand a 61 y.o. 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 PHYSICAL EXAM: General: Alert, oriented and in no acute distress. HEENT: Oropharynx normal. Lungs clear bilaterally. Heart regular. Abdomen soft, nontender, nondistended, with normal bowel sounds. PROCEDURAL MEDICATIONS: None DESCRIPTION OF OPERATION/PROCEDURE: The patient was prepped in standard fashion prior to capsule administration. The capsule was administered on 08/02/15. Images were recorded on a mobile recording device, and subsequently transferred to a computer, then analyzed with the use of proprietary software. FINDINGS: Total recording time: 11:04:20 The first gastric image was at 00:00:41 The first duodenal image was at 01:17:37 The first cecal image was at 11:03:02 Limited views of the esophagus showed no abnormalities. Limited views of the stomach showed no abnormalities Small bowel prep was poor in the distal small intestine Colonic evaluation was limited by retained stool. Visualized mucosa appeared normal. First duodenal image Edematous Proximal duodenum Ampulla of Vater Lymphangiectasia with normal appearing mucosa COMPLICATIONS None reported. IMPRESSIONS: 1) Edematous bowel within the proximal duodenum. 2) No signs of active or recent bleeding. 3) No source identified that could be a potential culprit of recent GI bleed 4) Lymphangiectasia a benign finding RECOMMENDATIONS: 1) Follow up with inpatient GI team Initial Reviewer Dada Watkins D.O. Fellow [facility] Department of Gastroenterology and Hepatology Pager: [phone] Volte: [id number] Teaching Statement I have personally reviewed images on this study and confirm the pertinent findings.I have discussed the case with the resident/fellow and agree with the findings and plan as documented. Final Reviewer: Raymundo Stock MD ENDOSCOPY PUSH ENTEROSCOPY (08/22/2016 2:36 PM)Only the most recent of2 resultswithin the time period is included. Narrative Julian Shelton MD 08/22/20162:36 PM ENDOSCOPY PUSH ENTEROSCOPY Procedure Date: 08/05/2016 Indications: Melena and recurrent GI small bowel bleeding. Attending Staff: JULIAN SHELTON MD Fellow: WANDER Edgar Referring Physician: Leonel Medina Consent: The risks, benefits, indications, potential complications, and alternatives were explained to the patient and informed consent obtained. Procedural Medications: Propofol 490 mg The procedure sedation was given under my direction from to . Description of Procedure: Time out was performed. The patient was placed in the left lateral decubitus position.The patient was monitored continuously withpulse oximetry, blood pressure monitoring, and direct observations. The Olympus pediatric colonoscopewas inserted into the mouth and advanced under direct vision to proximal jejunum.A careful inspection was made as the gastroscope was withdrawn, including a retroflexed view of the proximal stomach; findings and interventions are described below. Photographs: Appropriate photodocumentation was obtained. Biopsy/Specimens: Antral polyp Findings: Esophagus:Z-line was was regular.No hiatal hernia.No esophageal varices, no endoscopic evidence of esophagitis. Stomach: A 7 mm large polyp with hematin on it which was removed with cautery snare and polypectomy site was closed with a resolution clip. There were no ulcers or erosions and no masses or polyps were present. Duodenum and Proximal jejunum: An area of active oozing was noted in the proximal jejunum without visible underlying lesion. The area was treated with 3 resolution clips. Hemostasis was achieved. Another area with some granulation tissue was note proximal to the lesion, consistent with prior clip site. Complications: The patient did tolerate the procedure well and no complications were noted. Anatomic Pathology Results: Stomach, antral polyp, biopsy: Small hyperplastic/inflammatory polyp. Associated iron pill gastropathy. Impression: A bleeding source noted in the proximal jejunum which was treated with clips and hemostasis was achieved. An antral hyperplasticpolyp with hematin on it was noted which was removed with cautery snare. Plan: Monitor clinically for further evidence of bleeding. In case he has further bleeding, options include emperial embolization of supplying blood vessel or repeat push enteroscopy. Other options is to use of Octreotide 50 microgram TID subq which has shown to decrease need for blood transfusion. WANDER Sigala Fellow, Division of Gastroenterology/Hepatology, [facility]. Teaching statement: I, Dr. Julian Shelton, was present for the entire procedure. Julian Shelton MD Clinical Professor Department of Internal Medicine Division of Gastroenterology-Hepatology PTT (PARTIAL THROMBOPLASTIN TIME) (08/19/2016 1:23 PM)Only the most recent of16 resultswithin the time period is included. Component Value Range PTT 52(H) 22-31 secs Specimen Blood CREATININE (08/19/2016 5:27 AM)Only the most recent of8 resultswithin the time period is included. Component Value Range Creatinine 0.9Comment: 0.6-1.2 mg/dL Creatinine switched to enzymatic method on 12/07/2010.GFR equation switched to IDMS-traceable MDRD equation on 12/07/2010. Calculated GFR values are not valid in clinical settings where serum creatinine is changing. Calculated GFR >90 >60 mL/min/1.73 m2 Specimen Blood FERRITIN (08/18/2016 5:28 AM) Component Value Range Ferritin 32.5 30.0-400.0 ng/mL Specimen Blood IRON PANEL (IRON, TRANSFERRIN AND % SATURATION) (08/18/2016 5:28 AM) Component Value Range Iron, Blood 13(L) 59-158 g/dL Transferrin 274 200-360 mg/dL Iron % Saturation 3(L)Comment: 20-50 % Transferrin saturation is not reliable when there are high ferritin concentrations greater than 1,200 ng/mL. Specimen Blood ELECTROLYTE PANEL (08/18/2016 5:28 AM)Only the most recent of7 resultswithin the time period is included. Component Value Range Sodium 137 135-145 mEq/L Potassium 3.9 3.5-5.0 mEq/L Chloride 104 95-107 mEq/L CO2 22 22-29 mEq/L Anion Gap 11 8-18 mEq/L Specimen Blood BLOOD UREA NITROGEN (08/18/2016 5:28 AM)Only the most recent of7 resultswithin the time period is included. Component Value Range BUN 9(L) 10-20 mg/dL Specimen Blood TYPE AND SCREEN (BLOOD TYPE(ABORH) AND RBC ANTIBODY SCREEN) (08/16/2016 6:33 AM )Only the most recent of2 resultswithin the time period is included. Component Value Range ABORH B Positive Specimen Expiration Date 2016-08-19 Antibody Screen Negative Specimen Blood BLOOD GLUCOSE, BEDSIDE (08/13/2016 7:35 AM) Component Value Range Glucose, Accu-Chek 150(H) 65-99 mg/dL Specimen Blood, capillary PLATELET COUNT (08/13/2016 4:20 AM) Component Value Range Platelet Count 138(L) 150-400 K/MM3 Specimen Whole Blood POTASSIUM (08/11/2016 10:51 PM) Component Value Range Potassium 3.8 3.5-5.0 mEq/L Specimen Blood EXTRA BLUE TUBE (08/11/2016 10:04 PM) Component Value Range Extra Blue Tube Store Specimen Blood EXTERNAL CBC (08/11/2016) Component Value Range Ext WBC Count 8.0 K/MM3 Ext RBC Count 2.84 M/MM3 Ext Hemoglobin 7.1 G/DL Ext Hematocrit 24.4 % Ext MCV (Mean Corpuscular Volume) 85.9 Ext MCH-Mean Corpuscular Hemoglobin 25.0 Ext MCHC-Mean Corpuscular Hgb Concentration 29.1 Ext Platelet Count 160 1-1001 K/MM3 Ext RDW-Red Cell Distribution Width 19.9 SURGICAL PATHOLOGY EXAM (08/05/2016 3:17 PM) Component Value Range Case Report Surgical Pathology Case: [id number] Authorizing Provider:Jarrod Jimenes MD Collected: 08/05/2016 03:17 PM Ordering Location: [facility] Received:08/08/2016 08:06 AM Pathologist: Billy Karimi MD Specimen:Stomach, Specify, ANTRAL POLYP Diagnosis Stomach, antral polyp, biopsy: Small hyperplastic/inflammatory polyp. Associated iron pill gastropathy. I have personally reviewed this case and edited the report as necessary. Clinical Information Antral hyperplastic-appearing polyp Gross Description A.Received in formalin, in a container labeled Jami Sanders, hospital number, and "ANTRAL POLYP", is a 0.8 x 0.6 x 0.6 cm bonner-pink polyp.The surgical resection margin is inked blue.The s pecimen is bisected and submitted entirely in cassette A1. BNS/tkr Microscopic Description Microscopic examination performed and supports the diagnosis. Performed by:Sylwia Parkinson MD, PhD, R2/tkr Specimen Tissue - Stomach, Specify EXTERNAL LACTATE DEHYDROGENASE (LDH)-OTHER (07/29/2016)NT-PROBNP (07/27/2016 10: 05 AM) Component Value Range NT-ProBNP 599(H)Comment: 0-177 pg/mL Reference ranges in adults reflect 95th percentiles for NT-pro-BNP levels in patients without congestive heart failure (CHF). Pediatric reference ranges for patients 18 years and younger are from Erika et al. Pediatr Cardiol 30:3-8, 2008. Age Reference Range (pg/mL) Pediatric (boys and girls): 0-30 days:263 - 6500 1 month-11 months: 37 - 1000 12 months-35 months: 39 -675 3 years to 6 years:23 -327 7 years to 14 years: 10 -242 15 years to 18 years: 6 -207 Adult Males: 19-44 years: 0 -93 45-54 years: 0 - 138 55-64 years: 0 - 177 65-74 years: 0 - 229 75 years or older: 0 - 852 Adult Females: 19-44 years: 0 - 178 45-54 years: 0 - 192 55-64 years: 0 - 226 65-74 years: 0 - 353 75 years or older: 0 - 624 For adult chronic CHF patients according to [place] [employer] ([employer]HA) Functional Class for NT-proBNP levels in pg/mL: [id number] Mean percentile percentile Class I: 1015 [id number] Class II:[id number] Class III: [id number] Class IV:[id number] 61866 Among patients with dyspnea, NT-proBNP is highly sensitive for the detection of acute CHF. In addition, a NT-proBNP < 300 pg/mL effectively rules out acute CHF, with 99% negative predictive value. Elevations in NT-proBNP levels may be observed in states other than left ventricular congestive failure including: acute coronary syndromes, right heart strain/failure (including pulmonary embolism an d cor pulmonale), critical illness, and renal failure. Falsely low NT-proBNP in CHF patients may be observed in increased body mass index. Specimen Blood
--- NOTE | 2016-10-13 12:33 | ERNOTE ---
Medical Problem HPI - Narrative Date of Service: 10/13/16 - General Chief Complaint: General Assessment Time Seen by Provider: 10/13/16 11:23 Source: patient Exam Limitations: no limitations - Immun/Allergies/Home Medications Immunizations: IMMUNIZATION HX Immunizations Up to Date Yes History of Influenza Vaccine Yes Hx Pneumococcal Vaccination Yes Allergies/Adverse Reactions: Allergies No Known Allergies Allergy (Verified 10/13/16 10:58) Home Medications: HOME MEDICATIONS ALPRAZolam [Xanax] 0.5 mg PO HS PRN 02/06/15 [Last Taken Unknown] Aspirin [Aspirin Enteric Coated] 81 mg PO DAILY 02/06/15 [Last Taken Unknown] Hydrocodone/Acetaminophen [Hydrocodon-Acetaminoph 7.5-325] 1 each PO Q3H PRN 05/14 [Last Taken Unknown] Sildenafil Citrate [Revatio] 2 tab PO TID 02/06/15 [Last Taken Unknown] Bumetanide 2 mg PO DAILY PRN 05/02/15 [Last Taken Unknown] Warfarin Sodium [Coumadin] 6 mg PO DAILY 07/29/15 [Last Taken Unknown] Fluticasone/Salmeterol [Advair 100-50 Diskus] 1 puff IH BID 10/11/15 [Last Taken Unknown] Omeprazole [Prilosec] 40 mg PO DAILY 10/11/15 [Last Taken Unknown] Tiotropium [place] [Spiriva] 18 mcg IH DAILY 10/11/15 [Last Taken Unknown] Acetaminophen [Tylenol] 1,000 mg PO TID PRN 05/18/16 [Last Taken Unknown] Amlodipine Besylate 10 mg PO DAILY 05/18/16 [Last Taken Unknown] Budesonide/Formoterol Fumarate [Symbicort 160-4.5 Mcg Inhaler] 1 puff IH BID [Last Taken Unknown] Docusate Sodium [Dok] 100 mg PO BID 05/18/16 [Last Taken Unknown] Hydralazine HCl 25 mg PO TID 05/18/16 [Last Taken Unknown] Magnesium Hydroxide [Milk of Magnesia] 2,400 mg PO DAILY PRN 05/18/16 [Last Taken Unknown] Potassium Chloride [Klor-Con M10] 10 meq PO DAILY PRN 05/18/16 [Last Taken Unknown] Fluticasone Propionate [Flonase] 2 spray NS DAILY 05/29/16 [Last Taken Unknown] Ferrous Sulfate [Iron] 325 mg PO TID 07/22/16 [Last Taken Unknown] - History of Present History Narrative: Sent to ER from outpatient services with a hemoglobin of 6.7. Pt has a LVAD ( left ventricular assist device) with occasional drop in his hemoglobin. Pt usually requires blood transfusion and a visit to his minders at [place], [place]. Today, the [facility] requested we transfuse blood and facilitate his transfer to their facility. Pt reports dizziness and fatigue. Timing: constant Review of Systems - Review of Systems Constitutional: Present: See HPI, fatigue EYE: Present: no symptoms reported ENT: Present: no symptoms reported Respiratory: Present: no symptoms reported Cardiology: Present: no symptoms reported Gastrointestinal/Abdominal: Present: no symptoms reported Genitourinary: Present: no symptoms reported Musculoskeletal: Present: no symptoms reported Skin: Present: no symptoms reported Neurological: Present: no symptoms reported Endocrine: Present: no symptoms reported Hematologic/Lymphatic: Present: no symptoms reported Psych: Present: no symptoms reported All Other Systems: All systems neg except as marked - Patient's Past Medical History Patient History - Medical: Anemia, Anxiety, GERD, Other Patient History - Cardiac/Respiratory: CHF, Hypertension, Other Patient History - Cancer: No Hx of Cancer Patient History - Surgical Procedures: Cholecystectomy, Pacemaker, Other Patient History - Other: None - Family History Mother Family History - Medical: , No pertinent hx Family History - Cardiac/Respiratory: CHF, Other Father Family History - Medical: , No pertinent hx Family History - Cardiac/Respiratory: No pertinent hx - Social History Living Situations: home Abuse History: No History of abuse Psych History: Hx of Anxiety Alcohol Use: none Drug Use: none - Immunizations Immunizations Up to Date: Yes Hx Pneumococcal Vaccination: Yes History of Influenza Vaccine: Yes Physical Exam - Physical Exam General Appearance: Present: wd/wn, alert, no apparent distress Ears, Nose, Throat: Present: normal ENT inspection, normal pharynx Neck: Present: normal inspection, nontender Respiratory: Present: no respiratory distress, normal breath sounds, no accessory muscle use, chest nontender, lungs clear Cardiovascular/Chest: Present: other - mechanial flow sound heard on auscultation. Gastrointestinal/Abdominal: Present: normal bowel sounds, nontender, nondistended, soft, no organomegaly Neurological Exam: Present: alert, oriented, normal mood/affect Skin Exam: Present: normal color, warm/dry Lymphatic Exam: Present: no adenopathy ED Progress - Results and Orders Patient's Lab Results:: I have reviewed the patient's lab results. 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 Vital Signs: Vital Signs 10/13/16 10:52 Temperature 36.3 C L Pulse Rate 92 Respiratory 12 Rate Blood Pressure 88/58 O2 Sat by Pulse 100 Oximetry - Progress/Reassessment Chief Complaint: General Assessment Progress:: Improved - Hgb was 8.2 following transfusion of 2 units of blood. Plan - Plan Plan: Case discussed with Dr. Arndt's office at [facility]. Request blood transfusion and transfer to [facility] as soon as a bed is made available. After waiting over 6 hours to receive a call from [facility] that a bed was available, pt decided to travel POV to [place]. He called Dr. Arndt's clinic and apprised them of his intentions, and then signed out AMA. At discharge pt's Hgb had risen to 8.2 following transfusion of 2 units of blood. Departure - Departure Clinical Impression: Hemolytic anemia, mechanical Disposition: [facility] Condition: Stable Referrals: Leonel Medina DO [Primary Care Provider] -
[2016-10-13 18:36] LABS: Hemoglobin 8.2 gm/dL (13.5-18.0)
[2016-10-13 19:16] VITALS: BP 110/64
== END 2016-10-13 19:15 | disposition left against medical advice (07) ==
LOC: ER 10:50
PROC: 30233N1 Transfusion of Nonautologous Red Blood Cells into Peripheral Vein, Percutaneous Approach (ICD-10-PCS; principal; 2016-10-13)
DX: D59.4 Other nonautoimmune hemolytic anemias (principal); Z79.01 Long term (current) use of anticoagulants; K21.9 Gastro-esophageal reflux disease without esophagitis; I10 Essential (primary) hypertension; F41.9 Anxiety disorder, unspecified; I50.9 Heart failure, unspecified; Z95.0 Presence of cardiac pacemaker; Z53.29 Procedure and treatment not carried out because of patient's decision for other reasons
CPT/HCPCS: 36415; 36430; 85014; 85018; 85025; 86850; 86900; 99283; P9016

== ENCOUNTER 2017-02-03 20:53 | Emergency (ER) | payer MEDICARE, OTHER ==
[2017-02-03 21:08] VITALS: BP 110/68
[2017-02-03] MEDS ORDERED: HYDROcodone/ACETAMINOPHEN 1 EACH TABLET PO ONE (21:11)
--- NOTE | 2017-02-03 21:13 | ERNOTE ---
Medical Problem HPI - General Chief Complaint: General Assessment Time Seen by Provider: 02/03/17 21:05 Source: patient Exam Limitations: no limitations - Immun/Allergies/Home Medications Immunizations: IMMUNIZATION HX Immunizations Up to Date Yes History of Influenza Vaccine Yes Hx Pneumococcal Vaccination Yes Allergies/Adverse Reactions: Allergies No Known Allergies Allergy (Verified 10/13/16 10:58) Home Medications: HOME MEDICATIONS ALPRAZolam [Xanax] 0.5 mg PO HS PRN 02/06/15 [Last Taken Unknown] Aspirin [Aspirin Enteric Coated] 81 mg PO DAILY 02/06/15 [Last Taken Unknown] HYDROcodone/ACETAMINOPHEN [Hydrocodon-Acetaminoph 7.5-325] 1 each PO Q3H PRN 05/14 [Last Taken Unknown] Sildenafil Citrate [Revatio] 2 tab PO TID 02/06/15 [Last Taken Unknown] Bumetanide 2 mg PO DAILY PRN 05/02/15 [Last Taken Unknown] Warfarin Sodium [Coumadin] 6 mg PO DAILY 07/29/15 [Last Taken Unknown] Fluticasone/Salmeterol [Advair 100-50 Diskus] 1 puff IH BID 10/11/15 [Last Taken Unknown] Omeprazole [Prilosec] 40 mg PO DAILY 10/11/15 [Last Taken Unknown] Tiotropium [place] [Spiriva] 18 mcg IH DAILY 10/11/15 [Last Taken Unknown] Acetaminophen [Tylenol] 1,000 mg PO TID PRN 05/18/16 [Last Taken Unknown] Amlodipine Besylate 10 mg PO DAILY 05/18/16 [Last Taken Unknown] Budesonide/Formoterol Fumarate [Symbicort 160-4.5 Mcg Inhaler] 1 puff IH BID [Last Taken Unknown] Docusate Sodium [Dok] 100 mg PO BID 05/18/16 [Last Taken Unknown] Magnesium Hydroxide [Milk of Magnesia] 2,400 mg PO DAILY PRN 05/18/16 [Last Taken Unknown] Potassium Chloride [Klor-Con M10] 10 meq PO DAILY PRN 05/18/16 [Last Taken Unknown] hydrALAZINE HCL [Hydralazine HCl] 25 mg PO TID 05/18/16 [Last Taken Unknown] Fluticasone Propionate [Flonase] 2 spray NS DAILY 05/29/16 [Last Taken Unknown] Ferrous Sulfate [Iron] 325 mg PO TID 07/22/16 [Last Taken Unknown] - History of Present History Narrative: Patient walks into this emergency room stating that approximately an hour ago he felt some shortness of breath while walking, subsequent to this shortness of breath patient felt his defibrillator fire and he felt a strong shock in the chest region. Denies any chest pains or pressure right now. This examiner was interviewing the patient informing the patient that he would have to do some blood tests and then perhaps possibly we would contact his cow tester however he became increasingly anxious and stated that he had already had blood tests done at [facility]. This examiner asked the patient stated that he had had blood tests done prior to having had his defibrillator fire. At this time the patient stated that he would prefer to just sign out AGAINST MEDICAL ADVICE and go to the [facility] himself. Myself and staff tried to talk him out of it however the patient wanted to leave AGAINST MEDICAL ADVICE and leave and go to the [facility]. - Patient's Past Medical History Patient History - Medical: Anemia, Anxiety, GERD, Other Patient History - Cardiac/Respiratory: CHF, Hypertension, Other Patient History - Cancer: No Hx of Cancer Patient History - Surgical Procedures: Cholecystectomy, Pacemaker, Other Patient History - Other: None - Family History Mother Family History - Medical: , No pertinent hx Family History - Cardiac/Respiratory: CHF, Other Father Family History - Medical: , No pertinent hx Family History - Cardiac/Respiratory: No pertinent hx - Social History Living Situations: home Abuse History: No History of abuse Psych History: Hx of Anxiety, Hx of Depression Smoking Status: Current some day smoker Have you smoked in the past 12 months: No Do you dip or chew tobacco: No Alcohol Use: none Drug Use: none - Immunizations Immunizations Up to Date: Yes Hx Pneumococcal Vaccination: Yes History of Influenza Vaccine: Yes ED Progress - Vital Signs Vital Signs: Vital Signs 02/03/17 20:56 Temperature 36.6 C Pulse Rate 94 Respiratory 20 Rate Blood Pressure 110/68 O2 Sat by Pulse 98 Oximetry - Progress/Reassessment Chief Complaint: General Assessment Departure - Departure Clinical Impression: Shortness of breath, Defibrillator discharge Disposition: Against medical advice Condition: Undetermined Referrals: Leonel Medina DO [Primary Care Provider] -
== END 2017-02-03 21:05 | disposition left against medical advice (07) ==
LOC: ER 20:53
DX: Z53.29 Procedure and treatment not carried out because of patient's decision for other reasons (principal)

== ENCOUNTER 2017-03-31 08:15 | Emergency (ER) | payer MEDICARE, OTHER ==
--- NOTE | 2017-03-31 08:37 | ERNOTE ---
Medical Problem HPI - General Time Seen by Provider: 03/31/17 08:20 Source: patient Exam Limitations: no limitations - Immun/Allergies/Home Medications Immunizations: IMMUNIZATION HX Immunizations Up to Date Yes History of Influenza Vaccine Yes Hx Pneumococcal Vaccination Yes Allergies/Adverse Reactions: Allergies No Known Allergies Allergy (Verified 03/31/17 08:23) Home Medications: HOME MEDICATIONS ALPRAZolam [Xanax] 0.5 mg PO HS PRN 02/06/15 [Last Taken Unknown] Aspirin [Aspirin Enteric Coated] 325 mg PO DAILY 02/06/15 [Last Taken Unknown] HYDROcodone/ACETAMINOPHEN [Hydrocodon-Acetaminoph 7.5-325] 1 each PO Q3H PRN 05/14 [Last Taken Unknown] Sildenafil Citrate [Revatio] 2 tab PO TID 02/06/15 [Last Taken Unknown] Bumetanide 1 mg PO DAILY PRN 05/02/15 [Last Taken Unknown] Warfarin Sodium [Coumadin] 6 mg PO DAILY 07/29/15 [Last Taken Unknown] Fluticasone/Salmeterol [Advair 100-50 Diskus] 1 puff IH BID 10/11/15 [Last Taken Unknown] Omeprazole [Prilosec] 40 mg PO DAILY 10/11/15 [Last Taken Unknown] Tiotropium [place] [Spiriva] 18 mcg IH DAILY 10/11/15 [Last Taken Unknown] Acetaminophen [Tylenol] 1,000 mg PO TID PRN 05/18/16 [Last Taken Unknown] Amlodipine Besylate 10 mg PO DAILY 05/18/16 [Last Taken Unknown] Budesonide/Formoterol Fumarate [Symbicort 160-4.5 Mcg Inhaler] 1 puff IH BID [Last Taken Unknown] Docusate Sodium [Dok] 100 mg PO BID 05/18/16 [Last Taken Unknown] Magnesium Hydroxide [Milk of Magnesia] 2,400 mg PO DAILY PRN 05/18/16 [Last Taken Unknown] Potassium Chloride [Klor-Con M10] 10 meq PO DAILY PRN 05/18/16 [Last Taken Unknown] Fluticasone Propionate [Flonase] 2 spray NS DAILY 05/29/16 [Last Taken Unknown] Ferrous Sulfate [Iron] 325 mg PO TID 07/22/16 [Last Taken Unknown] Bisoprolol Fumarate [Zebeta] 2.5 mg PO BID 03/31/17 [Last Taken Unknown] - History of Present History Narrative: Patient has a history of CHF, that is well compensated with an LVAD and it waiting heart transplant. Most recently his blood pressures have been running high and he had his medication adjusted. He was started on bisoprolol 2.5mg, increased to 5mg daily about a week ago and when he did not tolerate that was told to take 2.5mg twice a day, since the dose increase he has been lightheaded , fatigued, intermittent headaches. He saw his PCP yesterday and had blood work done. This morning his symptoms were worse and he was told to come to the ER. He denies any focal symptoms Review of Systems - Review of Systems Constitutional: Present: weakness, fatigue. Absent: recent illness, fever ENT: Present: nasal drainage. Absent: nose congestion, sore throat Respiratory: Present: cough - slight. Absent: shortness of breath Cardiology: Absent: chest pain Gastrointestinal/Abdominal: Absent: nausea, vomiting, diarrhea Genitourinary: Present: no symptoms reported Musculoskeletal: Present: no symptoms reported Neurological: Present: headache - intermittent, dizziness/light-headedness Hematologic/Lymphatic: Absent: other - no GI bleed - Patient's Past Medical History Patient History - Medical: Anemia, Anxiety, GERD, Other Patient History - Cardiac/Respiratory: CHF, Hypertension, Other Patient History - Cancer: No Hx of Cancer Patient History - Surgical Procedures: Cholecystectomy, Pacemaker, Other Patient History - Other: None - Family History Mother Family History - Medical: , No pertinent hx Family History - Cardiac/Respiratory: CHF, Other Father Family History - Medical: , No pertinent hx Family History - Cardiac/Respiratory: No pertinent hx - Social History Living Situations: home Abuse History: No History of abuse Psych History: Hx of Anxiety, Hx of Depression Alcohol Use: none Drug Use: none - Immunizations Immunizations Up to Date: Yes Hx Pneumococcal Vaccination: Yes History of Influenza Vaccine: Yes Physical Exam - Physical Exam General Appearance: Present: wd/wn, alert, no apparent distress, anxious Head Exam: Present: normal inspection Eye Exam: Normal inspection: bilateral, PERRL: bilateral, EOMI: bilateral Respiratory: Present: no respiratory distress, normal breath sounds, no accessory muscle use, lungs clear Cardiovascular/Chest: Present: regular rate, rhythm, other - LVAD Gastrointestinal/Abdominal: Present: nontender Extremity Exam: Present: no edema Neurological Exam: Present: alert, oriented, normal mood/affect, no motor/ sensory deficits Skin Exam: Present: normal color, warm/dry ED Progress - Results and Orders Patient's Lab Results:: I have reviewed the patient's lab results. Results and Orders: reviewed labs drawn yesteday - Vital Signs Patient's Vital Signs:: I have reviewed the patient's vital signs. Vital Signs: Vital Signs 03/31/17 03/31/17 08:15 08:29 Temperature 36.6 C Pulse Rate 72 74 Respiratory 12 12 Rate Blood Pressure 93/73 93/73 O2 Sat by Pulse 96 97 Oximetry - Progress/Reassessment Progress Note-Subjective: 03/31/17 09:25 reviewed orthostatic vitals, patient only felt tired but no light headedness, no symptoms currently, did not take meds this morning 03/31/17 09:[address] Morrison (LVAD physician) would like to get INR and LDH, patient should be able to get discharged and follow up out patient 03/31/17 09:39 patient is doing his own INR at home was 2.2 this am 03/31/17 10:35 discussed with yelena Perera to discharge patient home for outpatient follow up next week Departure - Departure Clinical Impression: Cardiomyopathy Qualifiers: Cardiomyopathy type: unspecified Qualified Code(s): I42.9 - Cardiomyopathy, unspecified Hypertension Qualifiers: Hypertension type: essential hypertension Qualified Code(s): I10 - Essential ( primary) hypertension Disposition: Home self-care Condition: Good Instructions: Heart Failure, [id number] Additional Instructions: follow up with your heart doctors next week as scheduled Referrals: Leonel Medina DO [Staff Physician] -
[2017-03-31 10:54] VITALS: BP 123/98
== END 2017-03-31 11:01 | disposition home or self-care (01) ==
LOC: ER 08:15
DX: I42.9 Cardiomyopathy, unspecified (principal); I10 Essential (primary) hypertension; Z79.01 Long term (current) use of anticoagulants

== ENCOUNTER 2017-04-10 15:54 | Emergency (ER) | payer MEDICARE, OTHER ==
[2017-04-10] MEDS ORDERED: NORMAL SALINE 1,000 ML IV ONE (16:18)
--- NOTE | 2017-04-10 16:19 | ERNOTE ---
Medical Problem HPI - General Chief Complaint: General Assessment Time Seen by Provider: 04/10/17 16:10 Source: patient, family Exam Limitations: no limitations - Immun/Allergies/Home Medications Immunizations: IMMUNIZATION HX Immunizations Up to Date Yes History of Influenza Vaccine Yes Hx Pneumococcal Vaccination Yes Allergies/Adverse Reactions: Allergies No Known Allergies Allergy (Verified 03/31/17 08:23) Home Medications: HOME MEDICATIONS ALPRAZolam [Xanax] 0.5 mg PO HS PRN 02/06/15 [Last Taken Unknown] Aspirin [Aspirin Enteric Coated] 325 mg PO DAILY 02/06/15 [Last Taken Unknown] HYDROcodone/ACETAMINOPHEN [Hydrocodon-Acetaminoph 7.5-325] 1 each PO Q3H PRN 05/14 [Last Taken Unknown] Sildenafil Citrate [Revatio] 2 tab PO TID 02/06/15 [Last Taken Unknown] Bumetanide 1 mg PO DAILY PRN 05/02/15 [Last Taken Unknown] Warfarin Sodium [Coumadin] 6 mg PO DAILY 07/29/15 [Last Taken Unknown] Fluticasone/Salmeterol [Advair 100-50 Diskus] 1 puff IH BID 10/11/15 [Last Taken Unknown] Omeprazole [Prilosec] 40 mg PO DAILY 10/11/15 [Last Taken Unknown] Tiotropium [place] [Spiriva] 18 mcg IH DAILY 10/11/15 [Last Taken Unknown] Acetaminophen [Tylenol] 1,000 mg PO TID PRN 05/18/16 [Last Taken Unknown] Amlodipine Besylate 10 mg PO DAILY 05/18/16 [Last Taken Unknown] Budesonide/Formoterol Fumarate [Symbicort 160-4.5 Mcg Inhaler] 1 puff IH BID [Last Taken Unknown] Docusate Sodium [Dok] 100 mg PO BID 05/18/16 [Last Taken Unknown] Magnesium Hydroxide [Milk of Magnesia] 2,400 mg PO DAILY PRN 05/18/16 [Last Taken Unknown] Potassium Chloride [Klor-Con M10] 10 meq PO DAILY PRN 05/18/16 [Last Taken Unknown] Fluticasone Propionate [Flonase] 2 spray NS DAILY 05/29/16 [Last Taken Unknown] Ferrous Sulfate [Iron] 325 mg PO TID 07/22/16 [Last Taken Unknown] Bisoprolol Fumarate [Zebeta] 2.5 mg PO BID 03/31/17 [Last Taken Unknown] - History of Present History Narrative: Patient presents with just a generalized feeling of being washed out. He states he feels like he might be a little bit dehydrated and his old bit dizzy when he gets up. He just wants to make sure he is alright and is here for just general violation of the lab work. Timing: constant Severity: mild Review of Systems - Review of Systems Constitutional: Present: See HPI EYE: Present: no symptoms reported ENT: Present: no symptoms reported Respiratory: Present: no symptoms reported Cardiology: Present: no symptoms reported Gastrointestinal/Abdominal: Present: no symptoms reported Genitourinary: Present: no symptoms reported Musculoskeletal: Present: no symptoms reported Skin: Present: no symptoms reported Neurological: Present: no symptoms reported Endocrine: Present: no symptoms reported Hematologic/Lymphatic: Present: no symptoms reported Psych: Present: no symptoms reported - Patient's Past Medical History Patient History - Medical: Anemia, Anxiety, GERD, Other Patient History - Cardiac/Respiratory: CHF, Hypertension, Other Patient History - Cancer: No Hx of Cancer Patient History - Surgical Procedures: Cholecystectomy, Pacemaker, Other - LVAD Patient History - Other: None - Family History Mother Family History - Medical: , No pertinent hx Family History - Cardiac/Respiratory: CHF, Other Father Family History - Medical: , No pertinent hx Family History - Cardiac/Respiratory: No pertinent hx - Social History Living Situations: home Abuse History: No History of abuse Psych History: Hx of Anxiety, Hx of Depression Have you smoked in the past 12 months: Yes Alcohol Use: none Drug Use: none - Immunizations Immunizations Up to Date: Yes Hx Pneumococcal Vaccination: Yes History of Influenza Vaccine: Yes Physical Exam - Physical Exam General Appearance: Present: wd/wn, alert, mild distress Eye Exam: Normal inspection: bilateral, PERRL: bilateral Ears, Nose, Throat: Present: normal ENT inspection, H, normal pharynx Neck: Present: normal inspection, nontender Respiratory: Present: no respiratory distress, normal breath sounds, no accessory muscle use, chest nontender, lungs clear Cardiovascular/Chest: Present: regular rate, rhythm, no murmur, normal peripheral pulses, other - patient has a constant hum on auscultation of the chest secondary to his LVAD Gastrointestinal/Abdominal: Present: normal bowel sounds, nontender, nondistended, soft, no organomegaly Rectal Exam: Present: deferred Back Exam: Present: normal inspection, normal range of motion Extremity Exam: Present: normal inspection, non-tender, no edema, normal range of motion Neurological Exam: Present: alert, oriented, normal mood/affect Skin Exam: Present: normal color, warm/dry Lymphatic Exam: Present: no adenopathy ED Progress - Results and Orders Patient's Lab Results:: I have reviewed the patient's lab results. - Vital Signs Patient's Vital Signs:: I have reviewed the patient's vital signs. Vital Signs: Vital Signs 04/10/17 15:55 Temperature 37.0 C Pulse Rate 108 H Respiratory 14 Rate Blood Pressure 128/97 O2 Sat by Pulse 98 Oximetry - EKG EKG: NSR EKG read: Reviewed by me - X-Ray X-Ray #1 X-Ray: chest Interpretation: Reviewed by me - Progress/Reassessment Chief Complaint: General Assessment Plan - Plan Plan: I had a nice discussion with Bere Cleaning RN who is part of the LVAD clinic at the [facility]. We discussed that Eulogio believes that the Levaquin that he is on is was causing part of the problem. As they were treating what appeared to be otitis media with the Levaquin and that it now appears to be resolved we decided to stop the Levaquin for now. Patient is given a small fluid bolus of 250 ML's and he felt somewhat better after that. His INR was done today and it was 2.3 per Bere and no further intervention needs to be undertaken there. As all of his labs are well within his normal range his chest x-ray does not reveal any pneumonia or pulmonary edema or congestive heart failure I do not feel that any further intervention is required there as well. Patient be discharged home and he agrees to call the [facility] to keep him apprised of how he is doing a Eulogio stated he understood. Departure - Departure Clinical Impression: Light-headed feeling Cardiomyopathy Qualifiers: Cardiomyopathy type: unspecified Qualified Code(s): I42.9 - Cardiomyopathy, unspecified Disposition: Home self-care Condition: Good Instructions: Cardiomyopathy
[2017-04-10 16:30] LABS: Hematocrit 52.7 % (42.0-52.0); Mean Cell Volume 81.2 fl (78-100); Mean Corpuscular Hemoglobin 26.2 pg (27-31); Mean Corpuscular Hgb Conc 32.3 g/dl (32-36); Neutrophil # 4.5 K/mm3 (1.3-6.0); Red Blood Count 6.49 M/mm3 (4.7-6.0); Red Cell Distribution Width 18.5 % (11.5-14.0); White Blood Count 6.3 K/mm3 (4.0-10.5)
[2017-04-10 16:45] LABS: Platelet Count 91 K/mm3 (150-450)
[2017-04-10 16:49] LABS: Albumin * 3.9 gm/dl (3.4-5.0); Anion Gap 14.3 mmol/L (6.8-13.8); BUN/Creatinine Ratio 13.2 (9.0-21.6); Bilirubin, Total 0.8 mg/dL (0.0-1.1); Ca. Corrected For Albumin 8.8 mg/dL (8.4-10.2); Carbon Dioxide 26.6 mmol/L (24-32.6); Potassium 3.9 mmol/L (3.4-4.6); Troponin I 0.025 ng/ml (0.00-0.10)
[2017-04-10 17:23] LABS: Urine Bilirubin Negative (NEGATIVE); Urine Blood Negative /ul (NEGATIVE); Urine Ketone Negative (NEGATIVE); Urine Nitrite Negative (NEGATIVE); Urine Protein 100 mg/dL (NEGATIVE); Urine Urobilinogen Normal (NORMAL)
[2017-04-10 17:37] LABS: Urine Appearance Clear; Urine Bacteria None Seen; Urine Color Dark Yellow; Urine RBC None Seen /hpf (0-5); Urine WBC None Seen /hpf (0-5)
[2017-04-10 18:01] LABS: Prothrombin Time (Patient) 20.7 Seconds (9.4-11.4)
[2017-04-10 18:13] LABS: INR 1.99 INR (0.90-1.10)
[2017-04-10 19:04] VITALS: BP 122/71
== END 2017-04-10 18:30 | disposition home or self-care (01) ==
LOC: ER 15:54
DX: I42.9 Cardiomyopathy, unspecified (principal); R42 Dizziness and giddiness

== ENCOUNTER 2017-06-07 18:05 | Emergency (ER) | payer MEDICARE, OTHER ==
--- NOTE | 2017-06-07 18:48 | ERNOTE ---
Dyspnea - General Presenting Symptoms: shortness of breath, other - palpitations Time Seen by Provider: 06/07/17 18:25 Source: patient Exam Limitations: no limitations - Immun/Allergies/Home Medications Immunizations: IMMUNIZATION HX Immunizations Up to Date Yes History of Influenza Vaccine Yes Hx Pneumococcal Vaccination Yes Allergies/Adverse Reactions: Allergies No Known Allergies Allergy (Verified 06/07/17 19:05) Home Medications: HOME MEDICATIONS ALPRAZolam [Xanax] 0.25 mg PO HS PRN 02/06/15 [Last Taken Unknown] HYDROcodone/ACETAMINOPHEN [Hydrocodon-Acetaminoph 7.5-325] 1 each PO Q6H PRN 05/14 [Last Taken Unknown] Sildenafil Citrate [Revatio] 2 tab PO TID 02/06/15 [Last Taken Unknown] Warfarin Sodium [Coumadin] 6 mg PO DAILY 07/29/15 [Last Taken Unknown] Omeprazole [Prilosec] 40 mg PO DAILY 10/11/15 [Last Taken Unknown] Acetaminophen [Tylenol] 1,000 mg PO TID PRN 05/18/16 [Last Taken Unknown] Budesonide/Formoterol Fumarate [Symbicort 160-4.5 Mcg Inhaler] 1 puff IH BID [Last Taken Unknown] Docusate Sodium [Dok] 100 mg PO BID 05/18/16 [Last Taken Unknown] Magnesium Hydroxide [Milk of Magnesia] 2,400 mg PO DAILY PRN 05/18/16 [Last Taken Unknown] Potassium Chloride [Klor-Con M10] 10 meq PO DAILY PRN 05/18/16 [Last Taken Unknown] Fluticasone Propionate [Flonase] 2 spray NS DAILY 05/29/16 [Last Taken Unknown] Aspirin [Aspirin EC] 324 mg PO DAILY 06/07/17 [Last Taken Unknown] Calcium Carb/Vitamin D3/Vit K1 [Calcium + D Soft Chewable Tab] 1 each PO DAILY 06/07/17 [Last Taken Unknown] Colchicine 0.6 mg PO DAILY 06/07/17 [Last Taken Unknown] Hydrochlorothiazide 12.5 mg PO HS 06/07/17 [Last Taken Unknown] Multivitamin [One Daily Multivitamin] 1 each PO DAILY 06/07/17 [Last Taken Unknown] Ondansetron [Zofran Odt] 4 mg PO Q8H PRN 06/07/17 [Last Taken Unknown] - History of Present Illness Narrative: Patient had a brief episode of palpitations or lives at the video store with some mild shortness of breath and he felt his internal defibrillator go off and then he returned back to his baseline at this point. At this juncture patient feels like he is back to his normal way of being in the world and just came here to make sure being was all right. He states he was at [place] today and they were very pleased with everything that was done and all the tests. 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 Initiating event: Reports: none Frequency of episodes: Reports: frequent episodes Associated Symptoms-Dyspnea: Reports: palpitations - now resolved Prior Treatment: Reports: recently seen, treated by physician - today in [place] Review of Systems - Review of Systems Constitutional: Present: See HPI EYE: Present: no symptoms reported ENT: Present: no symptoms reported Respiratory: Present: See HPI Cardiology: Present: See HPI Gastrointestinal/Abdominal: Present: no symptoms reported Genitourinary: Present: no symptoms reported Musculoskeletal: Present: no symptoms reported Skin: Present: no symptoms reported Neurological: Present: no symptoms reported Endocrine: Present: no symptoms reported Hematologic/Lymphatic: Present: no symptoms reported Psych: Present: no symptoms reported - Patient's Past Medical History Patient History - Medical: Anemia, Anxiety, GERD, Other Patient History - Cardiac/Respiratory: Cardiomyopathy, CHF, Hypertension, Other Patient History - Cancer: No Hx of Cancer Patient History - Surgical Procedures: Cholecystectomy, Pacemaker, Other - LVAD Patient History - Other: None - Family History Mother Family History - Medical: , No pertinent hx Family History - Cardiac/Respiratory: CHF, Other Father Family History - Medical: , No pertinent hx Family History - Cardiac/Respiratory: No pertinent hx - Social History Abuse History: No History of abuse Psych History: Hx of Anxiety, Hx of Depression Smoking Status: Former smoker - Immunizations Immunizations Up to Date: Yes Hx Pneumococcal Vaccination: Yes History of Influenza Vaccine: Yes Physical Exam - Physical Exam General Appearance: Present: wd/wn, alert, no apparent distress Head Exam: Present: normal inspection Eye Exam: Normal inspection: bilateral, PERRL: bilateral Ears, Nose, Throat: Present: normal ENT inspection, H, normal pharynx Neck: Present: normal inspection, nontender Respiratory: Present: no respiratory distress, normal breath sounds, no accessory muscle use, chest nontender, lungs clear Cardiovascular/Chest: Present: regular rate, rhythm, no murmur, normal peripheral pulses, extra beats Gastrointestinal/Abdominal: Present: normal bowel sounds, nontender, nondistended, soft, no organomegaly Rectal Exam: Present: deferred Back Exam: Present: normal inspection, normal range of motion Extremity Exam: Present: normal inspection, non-tender, no edema, normal range of motion Neurological Exam: Present: alert, oriented, normal mood/affect Skin Exam: Present: normal color, warm/dry Lymphatic Exam: Present: no adenopathy ED Progress - Results and Orders Patient's Lab Results:: I have reviewed the patient's lab results. - from [place] today - Vital Signs Patient's Vital Signs:: I have reviewed the patient's vital signs. Vital Signs: Vital Signs 06/07/17 18:18 Temperature 36.3 C L Pulse Rate 92 Respiratory 14 Rate Blood Pressure 118/87 O2 Sat by Pulse 97 Oximetry - EKG EKG: NSR EKG read: Reviewed by me - X-Ray X-Ray #1 X-Ray: chest Interpretation: Reviewed by me - Progress/Reassessment Chief Complaint: Dyspnea Plan - Plan Plan: Once again the patient is back to his baseline, his potassium and his magnesium are both within normal range and his chest x-ray is unremarkable. I suspect he had a brief course of V. tach which is why his defibrillator went off and successful defibrillation and patient is stable to go home. He has an appointment with his food service tomorrow and he understands to keep that appointment. Departure Clinical Impression: Defibrillator discharge - Departure Disposition: Home self-care Condition: Good Instructions: Cardioverter Defibrillator Implantation, Care After
[2017-06-07] MEDS ORDERED: LORazepam 1 MG TABLET PO ONE (19:56)
[2017-06-07] MEDS ORDERED: ALPRAZolam 0.25 MG TABLET PO ONE (19:59)
[2017-06-07] MEDS ORDERED: ALPRAZolam 0.25 MG TABLET ONE (20:01)
[2017-06-07 20:51] VITALS: BP 117/82
== END 2017-06-07 21:00 | disposition home or self-care (01) ==
LOC: ER 18:05
DX: T82.897A Other specified complication of cardiac prosthetic devices, implants and grafts, initial encounter (principal); Z87.891 Personal history of nicotine dependence; Z95.810 Presence of automatic (implantable) cardiac defibrillator; Z79.01 Long term (current) use of anticoagulants

== ENCOUNTER 2017-06-13 19:02 | Emergency (ER) | payer MEDICARE, OTHER ==
--- NOTE | 2017-06-13 20:40 | ERNOTE ---
Dizziness ER Record Presenting Symptoms: dizziness Time Seen by Provider: 06/13/17 20:02 Source: patient Exam Limitations: no limitations Immunizations: IMMUNIZATION HX Immunizations Up to Date Yes History of Influenza Vaccine Yes Hx Pneumococcal Vaccination Yes Allergies/Adverse Reactions: Allergies Allergy/AdvReac Type Severity Reaction Status Date / Time No Known Allergies Allergy Verified 06/07/17 19:05 Home Medications: HOME MEDICATIONS ALPRAZolam [Xanax] 0.25 mg PO HS PRN 02/06/15 [Last Taken Unknown] HYDROcodone/ACETAMINOPHEN [Hydrocodon-Acetaminoph 7.5-325] 1 each PO Q6H PRN 05/14 [Last Taken Unknown] Sildenafil Citrate [Revatio] 2 tab PO TID 02/06/15 [Last Taken Unknown] Warfarin Sodium [Coumadin] 6 mg PO DAILY 07/29/15 [Last Taken Unknown] Omeprazole [Prilosec] 40 mg PO DAILY 10/11/15 [Last Taken Unknown] Acetaminophen [Tylenol] 1,000 mg PO TID PRN 05/18/16 [Last Taken Unknown] Budesonide/Formoterol Fumarate [Symbicort 160-4.5 Mcg Inhaler] 1 puff IH BID [Last Taken Unknown] Docusate Sodium [Dok] 100 mg PO BID 05/18/16 [Last Taken Unknown] Magnesium Hydroxide [Milk of Magnesia] 2,400 mg PO DAILY PRN 05/18/16 [Last Taken Unknown] Potassium Chloride [Klor-Con M10] 10 meq PO DAILY PRN 05/18/16 [Last Taken Unknown] Fluticasone Propionate [Flonase] 2 spray NS DAILY 05/29/16 [Last Taken Unknown] Aspirin [Aspirin EC] 324 mg PO DAILY 06/07/17 [Last Taken Unknown] Calcium Carb/Vitamin D3/Vit K1 [Calcium + D Soft Chewable Tab] 1 each PO DAILY 06/07/17 [Last Taken Unknown] Colchicine 0.6 mg PO DAILY 06/07/17 [Last Taken Unknown] Hydrochlorothiazide 12.5 mg PO HS 06/07/17 [Last Taken Unknown] Multivitamin [One Daily Multivitamin] 1 each PO DAILY 06/07/17 [Last Taken Unknown] Ondansetron [Zofran Odt] 4 mg PO Q8H PRN 06/07/17 [Last Taken Unknown] - History of Present Illness Narrative: Patient has history of CHF that is compensated with his LVAD. Since being compensated the patient has had problems with his blood pressure and had multiple medications adjusted. He states that he has not tolerated amlodipine well in the past but was put back on it in November after his LVAD was changed due to an infection. He states that he has not felt well since, has been weak and intermittently dizzy which he thinks is caused by amlodipine 10mg that he has been taking. He stopped amlodipine two weeks ago. Five days ago he felt his defibrillator go off, saw his alternative medicine practitioner afterwards. Over the last few days he has been increasingly weak and dizzy, described the dizziness as a spinning feeling with head movements and especially when getting out of bed, he has been able to do very little and spends most of his days in bed and sitting down, intermittent headache, slight nausea, tinnitus at times Timing and Duration: gradual onset Associated Symptoms: Present: ringing/roaring in ear, nausea, headache, weakness. Absent: ear pain, vomiting Sense of movement: Present: spinning, vague Fainted/near fainted while:: Present: standing Decreased ability to stand/walk:: Present: weak Usually:: Present: walks w/o assistance Modifying Factors - (Improves): Reports: other - holding still, laying down Modifying Factors - (Worsens): Reports: movement of head, standing position Prior Treament: Reports: recently seen, similar symptoms before Review of Systems - Review of Systems Constitutional: Present: weakness, fatigue. Absent: fever, chills ENT: Absent: nose congestion, sore throat Respiratory: Absent: shortness of breath, cough Cardiology: Absent: chest pain Gastrointestinal/Abdominal: Present: nausea. Absent: vomiting, abdominal pain Genitourinary: Present: no symptoms reported Musculoskeletal: Absent: neck pain Neurological: Present: headache, weakness. Absent: numbness Psych: Present: anxiety - Patient's Past Medical History Patient History - Medical: Anemia, Anxiety, GERD, Other Patient History - Cardiac/Respiratory: CHF, Hypertension, Other Patient History - Cancer: No Hx of Cancer Patient History - Surgical Procedures: Other Patient History - Other: None - Family History Mother Family History - Medical: , No pertinent hx Family History - Cardiac/Respiratory: CHF, Other Father Family History - Medical: , No pertinent hx Family History - Cardiac/Respiratory: No pertinent hx - Social History Living Situations: spouse Abuse History: No History of abuse Psych History: Hx of Anxiety, Hx of Depression Smoking Status: Former smoker Have you smoked in the past 12 months: No Do you dip or chew tobacco: No Smoking Stop Date: 04/21/17 - Immunizations Immunizations Up to Date: Yes Hx Pneumococcal Vaccination: Yes History of Influenza Vaccine: Yes Physical Exam - Physical Exam General Appearance: Present: wd/wn, alert, no apparent distress, anxious Head Exam: Present: normal inspection, no evidence of injury Eye Exam: Normal inspection: bilateral, PERRL: bilateral, EOMI: bilateral Ears, Nose, Throat: Present: normal ENT inspection, normal pharynx Neck: Present: normal inspection Respiratory: Present: no respiratory distress, normal breath sounds, no accessory muscle use, lungs clear Cardiovascular/Chest: Present: regular rate, rhythm, no murmur Gastrointestinal/Abdominal: Present: nontender, nondistended, soft Extremity Exam: Present: no edema Neurological Exam: Present: alert, oriented, normal mood/affect, no motor/ sensory deficits, other - when standing up wide unsteady stance, citlaly hallpike positive to right side Skin Exam: Present: normal color, warm/dry ED Progress - Results and Orders Patient's Lab Results:: I have reviewed the patient's lab results. - Vital Signs Patient's Vital Signs:: I have reviewed the patient's vital signs. Vital Signs: Vital Signs 06/13/17 06/13/17 19:23 20:05 Temperature 37.1 C Pulse Rate 93 82 Respiratory 18 Rate O2 Sat by Pulse 100 Oximetry - Progress/Reassessment Chief Complaint: Dizziness Progress Note-Subjective: 06/13/17 21:[address] Morrison (transplant doctor at [facility]), will get patient appointment this week might benefit from vestibular and cardiac rehab 06/13/17 21:38 discussed plan with patient, will discharge Departure Clinical Impression: Vertigo Cardiomyopathy Qualifiers: Cardiomyopathy type: unspecified Qualified Code(s): I42.9 - Cardiomyopathy, unspecified Congestive cardiac failure Qualifiers: Congestive heart failure type: unspecified congestive heart failure type Congestive heart failure chronicity: chronic Qualified Code(s): I50.9 - Heart failure, unspecified - Departure Disposition: Home self-care Condition: Stable Instructions: Dizziness, [id number] Additional Instructions: Dr Morrison will get you a clinic appointment this week you might benefit from physical therapy for your dizziness and your weakness
[2017-06-13 20:50] LABS: Hematocrit 51.4 % (42.0-52.0); Hemoglobin 16.9 gm/dL (13.5-18.0); Mean Cell Volume 84.1 fl (78-100); Mean Corpuscular Hemoglobin 27.7 pg (27-31); Mean Corpuscular Hgb Conc 32.9 g/dl (32-36); Mean Platelet Volume 11.3 fl (6.0-9.5); Neutrophil # 3.6 K/mm3 (1.3-6.0); Neutrophil % 70.6 % (42-75.0); Platelet Count 116 K/mm3 (150-450); Red Blood Count 6.11 M/mm3 (4.7-6.0); Red Cell Distribution Width 16.6 % (11.5-14.0); White Blood Count 5.2 K/mm3 (4.0-10.5)
[2017-06-13 21:09] LABS: Prothrombin Time (Patient) 24.9 Seconds (9.0-11.0)
[2017-06-13 21:15] LABS: Albumin * 3.7 gm/dl (3.4-5.0); Anion Gap 14.4 mmol/L (6.8-13.8); BUN/Creatinine Ratio 13.2 (9.0-21.6); Ca. Corrected For Albumin 8.6 mg/dL (8.4-10.2); Calcium * 8.7 mg/dL (7.9-10.9); Carbon Dioxide 25.2 mmol/L (24-32.6); Potassium 3.6 mmol/L (3.4-4.6); Total Protein 8.6 gm/dL (6.2-8.2)
[2017-06-13 21:18] VITALS: BP 106/70
[2017-06-13 21:23] LABS: INR 2.47 INR (0.90-1.10)
[2017-06-13] MEDS ORDERED: ALPRAZolam 0.25 MG TABLET PO ONE (21:35)
[2017-06-13] MEDS ORDERED: ALPRAZolam 0.25 MG TABLET ONE (21:42)
== END 2017-06-13 21:50 | disposition home or self-care (01) ==
LOC: ER 19:02
DX: I42.9 Cardiomyopathy, unspecified (principal); I50.9 Heart failure, unspecified; R42 Dizziness and giddiness; Z87.891 Personal history of nicotine dependence

== ENCOUNTER 2017-06-22 12:25 | Emergency (ER) | payer MEDICARE, OTHER ==
--- NOTE | 2017-06-22 12:45 | ERNOTE ---
Dizziness ER Record Date of Service: 06/22/17 Presenting Symptoms: dizziness, near-fainting Time Seen by Provider: 06/22/17 13:35 Source: patient Exam Limitations: no limitations Immunizations: IMMUNIZATION HX Immunizations Up to Date Yes History of Influenza Vaccine Yes Hx Pneumococcal Vaccination Yes Allergies/Adverse Reactions: Allergies Allergy/AdvReac Type Severity Reaction Status Date / Time No Known Allergies Allergy Verified 06/22/17 12:34 Home Medications: HOME MEDICATIONS ALPRAZolam [Xanax] 0.25 mg PO HS PRN 02/06/15 [Last Taken Unknown] HYDROcodone/ACETAMINOPHEN [Hydrocodon-Acetaminoph 7.5-325] 1 each PO Q6H PRN 05/14 [Last Taken Unknown] Sildenafil Citrate [Revatio] 2 tab PO TID 02/06/15 [Last Taken Unknown] Warfarin Sodium [Coumadin] 6 mg PO DAILY 07/29/15 [Last Taken Unknown] Omeprazole [Prilosec] 40 mg PO DAILY 10/11/15 [Last Taken Unknown] Acetaminophen [Tylenol] 1,000 mg PO TID PRN 05/18/16 [Last Taken Unknown] Budesonide/Formoterol Fumarate [Symbicort 160-4.5 Mcg Inhaler] 1 puff IH BID [Last Taken Unknown] Docusate Sodium [Dok] 100 mg PO BID 05/18/16 [Last Taken Unknown] Magnesium Hydroxide [Milk of Magnesia] 2,400 mg PO DAILY PRN 05/18/16 [Last Taken Unknown] Potassium Chloride [Klor-Con M10] 10 meq PO DAILY PRN 05/18/16 [Last Taken Unknown] Fluticasone Propionate [Flonase] 2 spray NS DAILY 05/29/16 [Last Taken Unknown] Aspirin [Aspirin EC] 324 mg PO DAILY 06/07/17 [Last Taken Unknown] Calcium Carb/Vitamin D3/Vit K1 [Calcium + D Soft Chewable Tab] 1 each PO DAILY 06/07/17 [Last Taken Unknown] Colchicine 0.6 mg PO DAILY 06/07/17 [Last Taken Unknown] Hydrochlorothiazide 12.5 mg PO HS 06/07/17 [Last Taken Unknown] Multivitamin [One Daily Multivitamin] 1 each PO DAILY 06/07/17 [Last Taken Unknown] Ondansetron [Zofran Odt] 4 mg PO Q8H PRN 06/07/17 [Last Taken Unknown] Bumetanide 5 mg PO DAILY 06/22/17 [Last Taken Unknown] Gabapentin 300 mg PO TID 06/22/17 [Last Taken Unknown] - History of Present Illness Narrative: Patient is a 62-year-old gentleman with a past medical history is significant for cardiomyopathy currently utilizing a left ventricular assist device presenting to the emergency room with a single episode of near syncope. Apparently he was washing his car, he bent down to waste picker an object and suddenly felt syncopal and decided to come to the emergency room for further evaluation. He denies any other cardiac symptoms including chest pain, shortness of breath, lightheadedness, leg swelling, diaphoresis, nausea, vomiting. Is currently on the transplant list for his heart. He was on hospice in the past but graduated. He was on amlodipine for his blood pressure control but was recently taken off because of poor tolerance. He also reports a couple of episode of his debilitator going off which is currently being monitored from [place]. Eyes any episode of his defibrillator going off today. Associated Symptoms: Absent: hearing loss, ringing/roaring in ear, ear pain, nausea, vomiting, headache, numbness, sweating, light headedness, sense of confusion Sense of movement: Absent: spinning, falling, vague, distinct Prior Treament: Reports: treated by physician Review of Systems - Review of Systems Constitutional: Present: See HPI EYE: Present: no symptoms reported, see HPI ENT: Present: no symptoms reported Respiratory: Present: no symptoms reported Cardiology: Present: See HPI Gastrointestinal/Abdominal: Present: See HPI Genitourinary: Present: See HPI Musculoskeletal: Present: See HPI Skin: Present: See HPI Neurological: Present: See HPI Endocrine: Present: See HPI - Patient's Past Medical History Patient History - Medical: Anemia, Anxiety, GERD, Other Patient History - Cardiac/Respiratory: CHF, Hypertension, Other Patient History - Cancer: No Hx of Cancer Patient History - Surgical Procedures: Cholecystectomy, T & A, Other Patient History - Other: None - Family History Mother Family History - Medical: , No pertinent hx Family History - Cardiac/Respiratory: CHF, Other Father Family History - Medical: , No pertinent hx Family History - Cardiac/Respiratory: No pertinent hx - Social History Living Situations: home Abuse History: No History of abuse Psych History: Hx of Anxiety, Hx of Depression Smoking Status: Never smoker Alcohol Use: none Drug Use: none - Immunizations Immunizations Up to Date: Yes Hx Pneumococcal Vaccination: Yes History of Influenza Vaccine: Yes Physical Exam - Physical Exam General Appearance: Present: wd/wn, alert, no apparent distress Head Exam: Present: normal inspection, no evidence of injury Eye Exam: Normal inspection: bilateral, PERRL: bilateral, EOMI: bilateral Ears, Nose, Throat: Present: normal ENT inspection Neck: Present: normal inspection, nontender, supple, full range of motion Respiratory: Present: no respiratory distress, normal breath sounds, no accessory muscle use Cardiovascular/Chest: Present: regular rate, rhythm, no murmur, normal peripheral pulses Gastrointestinal/Abdominal: Present: normal bowel sounds, nontender, nondistended Back Exam: Present: normal inspection, normal range of motion, no CVA tenderness Neurological Exam: Present: alert, oriented, normal mood/affect Skin Exam: Present: normal color Lymphatic Exam: Present: no adenopathy ED Progress - Results and Orders Patient's Lab Results:: I have reviewed the patient's lab results. - Vital Signs Patient's Vital Signs:: I have reviewed the patient's vital signs. Vital Signs: Vital Signs 06/22/17 12:28 Temperature 36.0 C L Pulse Rate 97 Respiratory 18 Rate Blood Pressure 131/100 O2 Sat by Pulse 97 Oximetry - EKG EKG: NSR - Progress/Reassessment Chief Complaint: Dizziness Progress:: Improved Progress Note-Subjective: 06/22/17 14:41 During his emergency room stay. Patient didn't appreciate any dizziness. Orthostatic vitals appear within normal limits. I did review his blood work yesterday. Which appears within normal limits. I offered to redraw some of his blood work noted ability to troponin but he was resistant to that as he had many blood draws recently. Given his history of bending down and feeling dizzy I do think that some normal response. Patient was also feeling anxious and we gave him Xanax 0.25 mg by mouth 1 He felt much better and wants to go home. Procedure and discharge him from the emergency room. I did encourage him to continue his routine follow-up visit with cardiology at [facility] - Transfer of Care Expected Disposition: Discharge Departure Clinical Impression: Near syncope - Departure Disposition: Home self-care Condition: Stable Instructions: Near-Syncope, [id number]
[2017-06-22] MEDS ORDERED: ALPRAZolam 0.25 MG TABLET PO ONE (13:48)
[2017-06-22] MEDS ORDERED: ALPRAZolam 0.25 MG TABLET ONE (13:57)
[2017-06-22 14:46] VITALS: BP 112/81
== END 2017-06-22 15:04 | disposition home or self-care (01) ==
LOC: ER 12:25
DX: R55 Syncope and collapse (principal); I50.9 Heart failure, unspecified; Z79.01 Long term (current) use of anticoagulants; I10 Essential (primary) hypertension; F41.9 Anxiety disorder, unspecified; K21.9 Gastro-esophageal reflux disease without esophagitis

== ENCOUNTER 2017-06-22 17:54 | Emergency (ER) | payer MEDICARE, OTHER ==
[2017-06-22 18:31] LABS: Hematocrit 51.2 % (42.0-52.0); Mean Cell Volume 84.2 fl (78-100); Mean Corpuscular Hgb Conc 33.2 g/dl (32-36); Mean Platelet Volume 12.4 fl (6.0-9.5); Neutrophil # 4.4 K/mm3 (1.3-6.0); Neutrophil % 71.2 % (42-75.0); Platelet Count 110 K/mm3 (150-450); Red Blood Count 6.08 M/mm3 (4.7-6.0); Red Cell Distribution Width 16.6 % (11.5-14.0); White Blood Count 6.1 K/mm3 (4.0-10.5)
--- NOTE | 2017-06-22 18:31 | ERNOTE ---
Medical Problem HPI - Narrative Date of Service: 06/22/17 - General Chief Complaint: Nausea/Vomiting Time Seen by Provider: 06/22/17 18:03 Source: patient, family - Immun/Allergies/Home Medications Immunizations: IMMUNIZATION HX Immunizations Up to Date Yes History of Influenza Vaccine Yes Hx Pneumococcal Vaccination Yes Allergies/Adverse Reactions: Allergies No Known Allergies Allergy (Verified 06/22/17 18:07) Home Medications: HOME MEDICATIONS ALPRAZolam [Xanax] 0.25 mg PO HS PRN 02/06/15 [Last Taken Unknown] HYDROcodone/ACETAMINOPHEN [Hydrocodon-Acetaminoph 7.5-325] 1 each PO Q6H PRN 05/14 [Last Taken Unknown] Sildenafil Citrate [Revatio] 2 tab PO TID 02/06/15 [Last Taken Unknown] Warfarin Sodium [Coumadin] 6 mg PO DAILY 07/29/15 [Last Taken Unknown] Omeprazole [Prilosec] 40 mg PO DAILY 10/11/15 [Last Taken Unknown] Acetaminophen [Tylenol] 1,000 mg PO TID PRN 05/18/16 [Last Taken Unknown] Budesonide/Formoterol Fumarate [Symbicort 160-4.5 Mcg Inhaler] 1 puff IH BID [Last Taken Unknown] Docusate Sodium [Dok] 100 mg PO BID 05/18/16 [Last Taken Unknown] Magnesium Hydroxide [Milk of Magnesia] 2,400 mg PO DAILY PRN 05/18/16 [Last Taken Unknown] Potassium Chloride [Klor-Con M10] 10 meq PO DAILY PRN 05/18/16 [Last Taken Unknown] Fluticasone Propionate [Flonase] 2 spray NS DAILY 05/29/16 [Last Taken Unknown] Aspirin [Aspirin EC] 324 mg PO DAILY 06/07/17 [Last Taken Unknown] Calcium Carb/Vitamin D3/Vit K1 [Calcium + D Soft Chewable Tab] 1 each PO DAILY 06/07/17 [Last Taken Unknown] Multivitamin [One Daily Multivitamin] 1 each PO DAILY 06/07/17 [Last Taken Unknown] Ondansetron [Zofran Odt] 4 mg PO Q8H PRN 06/07/17 [Last Taken Unknown] RX: Colchicine 0.6 mg PO DAILY 06/07/17 [Last Taken Unknown] RX: Hydrochlorothiazide 25 mg PO HS 06/07/17 [Last Taken Unknown] RX: Bumetanide 5 mg PO DAILY 06/22/17 [Last Taken Unknown] RX: Gabapentin 300 mg PO TID 06/22/17 [Last Taken Unknown] - History of Present History Narrative: Patient is a 62-year-old gentleman with a past medical history significant for cardiomyopathy discusses a second visit to the emergency room today. He was seen earlier for a near-syncopal episode that he had when he was washing his car. Apparently at the time a bent to pick remover an object from the floor and when he got up he started having dizzy spells that resolved by the time he came to the emergency room. Orthostatic vitals that was done upon arrival was unremarkable EKG didn't show any changes. Somewhat anxious at the time he was given Xanax 0.25 mg with good response. He didn't want to get any blood work done because of recent several blood draws that was done. He was discharged from the emergency room he returns reporting that he is not feeling better. This time he reports vague abdominal pain that has resolved currently. He also felt lightheaded when he went home. He made mention of not having a Xanax when he went home. He ran out of his Xanax and he is waiting to see his physician tomorrow Essentially he denies any chest pain, shortness of breath, leg swelling, diaphoresis, chills, diarrhea, fever, chills, night sweats, Review of Systems - Review of Systems Constitutional: Present: malaise. Absent: recent illness, fever, chills, diaphoresis, weakness, fatigue, weight loss, fussy, decreased activity level EYE: Present: see HPI ENT: Present: See HPI Respiratory: Present: See HPI Cardiology: Absent: chest pain, palpitations, syncope, edema, claudication Gastrointestinal/Abdominal: Present: nausea, abdominal pain. Absent: vomiting, diarrhea, constipation, eating less, drinking less Musculoskeletal: Present: See HPI Skin: Present: See HPI Neurological: Present: See HPI Endocrine: Present: See HPI Hematologic/Lymphatic: Present: See HPI - Patient's Past Medical History Patient History - Medical: Anemia, Anxiety, GERD, Other Patient History - Cardiac/Respiratory: CHF, Hypertension, Other Patient History - Cancer: No Hx of Cancer Patient History - Surgical Procedures: Cholecystectomy, T & A, Other Patient History - Other: None - Family History Mother Family History - Medical: , No pertinent hx Family History - Cardiac/Respiratory: CHF, Other Father Family History - Medical: , No pertinent hx Family History - Cardiac/Respiratory: No pertinent hx - Social History Living Situations: home Abuse History: No History of abuse Psych History: Hx of Anxiety, Hx of Depression - Immunizations Immunizations Up to Date: Yes Hx Pneumococcal Vaccination: Yes History of Influenza Vaccine: Yes Physical Exam - Physical Exam General Appearance: Present: wd/wn, alert, no apparent distress Head Exam: Present: normal inspection, no evidence of injury, no tenderness w palpation Eye Exam: Normal inspection: bilateral, PERRL: bilateral, EOMI: bilateral Ears, Nose, Throat: Present: normal ENT inspection Neck: Present: normal inspection, nontender Respiratory: Present: no respiratory distress, normal breath sounds, chest nontender, lungs clear Cardiovascular/Chest: Present: regular rate, rhythm, no murmur, normal peripheral pulses Gastrointestinal/Abdominal: Present: normal bowel sounds, nontender, nondistended, soft Back Exam: Present: normal inspection, normal range of motion Extremity Exam: Present: normal inspection, normal except - ED Progress - Results and Orders Patient's Lab Results:: I have reviewed the patient's lab results. - Vital Signs Patient's Vital Signs:: I have reviewed the patient's vital signs. Vital Signs: Vital Signs 06/22/17 06/22/17 18:02 18:09 Temperature 36.8 C Pulse Rate 79 80 Respiratory 15 15 Rate O2 Sat by Pulse 99 98 Oximetry - EKG EKG: NSR, unchanged from EKG read: Reviewed by me - Progress/Reassessment Chief Complaint: Nausea/Vomiting Progress Note-Subjective: 06/22/17 19:26 Blood work reviewed with no significant findings. He has no white count. His hemoglobin and hematocrit appear within normal limits. The bnp Is 656 however given his cardiomyopathy and his age that appears to be in normal limits for him. Troponin is unremarkable for any myocardial ischemia. EKG revealed normal sinus rhythm with premature ventricular complexes and no ST changes. His urinalysis also is unrevealing for any indices consistent with UTI. Pressing the patient did have marijuana in his urinary drug screen. Given this marijuana positivity I will not dispense any medicine as a BDZ FOR HIM him. Follow up with his primary care physician jamaalorrow - Transfer of Care Expected Disposition: Discharge Departure Clinical Impression: Near syncope - Departure Disposition: Home self-care Condition: Stable Instructions: Near-Syncope, [id number] Referrals: Leonel Medina DO [Primary Care Provider] -
[2017-06-22 18:58] LABS: Troponin I 0.029 ng/ml (0.00-0.10)
[2017-06-22 19:03] LABS: Albumin * 3.8 gm/dl (3.4-5.0); Anion Gap 14.9 mmol/L (6.8-13.8); BUN/Creatinine Ratio 13.1 (9.0-21.6); Bilirubin, Total 1.1 mg/dL (0.0-1.1); CKMB 2.3 ng/mL (0.0-9.0); Ca. Corrected For Albumin 8.8 mg/dL (8.4-10.2); Carbon Dioxide 26.9 mmol/L (24-32.6); Potassium 3.8 mmol/L (3.4-4.6); Total Protein 8.7 gm/dL (6.2-8.2)
[2017-06-22 19:07] LABS: Urine Bilirubin Negative (NEGATIVE); Urine Ketone Negative (NEGATIVE); Urine Nitrite Negative (NEGATIVE); Urine Protein 30 mg/dL (NEGATIVE); Urine Specific Gravity 1.015 SP.GR. (1.005-1.030); Urine Urobilinogen Normal (NORMAL)
[2017-06-22 19:19] VITALS: BP 115/0
[2017-06-22 19:19] LABS: Urine Blood 10 /ul (NEGATIVE); Urine Color Yellow
[2017-06-22 19:20] LABS: Cocaine Ur Negative (NEGATIVE); Urine Amorphous Sediment Few - 1+ (NONE-FEW); Urine Appearance Slightly Cloudy; Urine Bacteria TRACE; Urine Barbiturate Negative (NEGATIVE); Urine Benzodiazepines Positive (NEGATIVE); Urine Opiates Negative (NEGATIVE); Urine PCP Negative (NEGATIVE); Urine RBC 0-5 /hpf (0-5); Urine THC Positive (NEGATIVE); Urine WBC None Seen /hpf (0-5)
[2017-06-22] MEDS ORDERED: LORazepam 1 MG TABLET PO ONE (20:16)
[2017-06-22] MEDS ORDERED: LORazepam 1 MG TABLET ONE (20:17)
== END 2017-06-22 20:32 | disposition home or self-care (01) ==
LOC: ER 17:54
DX: R55 Syncope and collapse (principal); I50.9 Heart failure, unspecified; Z79.01 Long term (current) use of anticoagulants; I10 Essential (primary) hypertension; F41.9 Anxiety disorder, unspecified; K21.9 Gastro-esophageal reflux disease without esophagitis

== ENCOUNTER 2017-08-09 08:54 | Emergency (ER) | payer MEDICARE, OTHER ==
--- NOTE | 2017-08-09 11:38 | ERNOTE ---
Abdominal HPI - General Chief Complaint: Abdominal Pain Time Seen by Provider: 08/09/17 11:10 Source: patient Exam Limitations: no limitations - Immun/Allergies/Home Medications Immunizatons: IMMUNIZATION HX Immunizations Up to Date Yes History of Influenza Vaccine Yes Hx Pneumococcal Vaccination Yes Allergies/Adverse Reactions: Allergies No Known Allergies Allergy (Verified 08/09/17 09:38) Home Medications: HOME MEDICATIONS ALPRAZolam [Xanax] 0.25 mg PO HS PRN 02/06/15 [Last Taken Unknown] HYDROcodone/ACETAMINOPHEN [Hydrocodon-Acetaminoph 7.5-325] 1 each PO Q6H PRN 05/14 [Last Taken Unknown] Sildenafil Citrate [Revatio] 2 tab PO TID 02/06/15 [Last Taken Unknown] Warfarin Sodium [Coumadin] 6 mg PO DAILY 07/29/15 [Last Taken Unknown] Omeprazole [Prilosec] 40 mg PO DAILY 10/11/15 [Last Taken Unknown] Acetaminophen [Tylenol] 1,000 mg PO TID PRN 05/18/16 [Last Taken Unknown] Docusate Sodium [Dok] 100 mg PO BID 05/18/16 [Last Taken Unknown] Magnesium Hydroxide [Milk of Magnesia] 2,400 mg PO DAILY PRN 05/18/16 [Last Taken Unknown] Potassium Chloride [Klor-Con M10] 10 meq PO Q73H PRN 05/18/16 [Last Taken Unknown] Fluticasone Propionate [Flonase] 2 spray NS DAILY 05/29/16 [Last Taken Unknown] Aspirin [Aspirin EC] 324 mg PO DAILY 06/07/17 [Last Taken Unknown] Colchicine 0.6 mg PO DAILY PRN 06/07/17 [Last Taken Unknown] Hydrochlorothiazide 25 mg PO BID 06/07/17 [Last Taken Unknown] Multivitamin [One Daily Multivitamin] 1 each PO DAILY 06/07/17 [Last Taken Unknown] Ondansetron [Zofran Odt] 4 mg PO Q8H PRN 06/07/17 [Last Taken Unknown] Budesonide/Formoterol Fumarate [Symbicort 160-4.5 Mcg Inhaler] 10.2 gm IH BID [Last Taken Unknown] Bumetanide 1 mg PO Q72H 06/25/17 [Last Taken Unknown] Calcium Carb, Citrate/Vit D3 [Calcium + D3 ER Tablet] 1 each PO DAILY 06/25/17 [ Last Taken Unknown] Tiotropium [place] [Spiriva] 18 mcg IH DAILY 06/25/17 [Last Taken Unknown] Clonidine HCl [Catapres] 0.1 mg PO DAILY 08/09/17 [Last Taken Unknown] Warfarin Sodium 8 mg PO 08/09/17 [Last Taken Unknown] - History of Present Illness Narrative: Patient has a history of CHF and has an implanted LVAD, most recently he was admitted at the [facility] as his INR was too high, discharged on 07/19. About three days ago he started to hav mild upper abdominal pain that was constant slowly increasing in intensity. He describes the pain as sharp. This morning the pain got severe,slightly better now, gets slightly worse with movement, no associated symptoms Timing: constant, getting worse Quality: moderate, sharpness Activities at Onset: none Modifying Factors - (Worsens): Present: movement Associated Symptoms: Present: headache. Absent: back pain, chest pain, diarrhea -mucous, fever/chills, heartburn, nausea, vomiting Review of Systems - Review of Systems Constitutional: Present: other - 15 lbs weight gain over the last three weeks. Absent: recent illness, fever ENT: Absent: nose congestion, sore throat Respiratory: Absent: shortness of breath, cough Cardiology: Absent: chest pain Gastrointestinal/Abdominal: Present: See HPI. Absent: nausea, vomiting, diarrhea Genitourinary: Present: no symptoms reported Neurological: Present: headache. Absent: weakness, numbness - Patient's Past Medical History Patient History - Medical: Anemia, Anxiety, GERD, Other Patient History - Cardiac/Respiratory: CHF, Hypertension, Other Patient History - Cancer: No Hx of Cancer Patient History - Surgical Procedures: Cholecystectomy, T & A, Other Patient History - Other: None - Family History Mother Family History - Medical: , No pertinent hx Family History - Cardiac/Respiratory: CHF, Other Father Family History - Medical: , No pertinent hx Family History - Cardiac/Respiratory: No pertinent hx - Social History Living Situations: spouse Abuse History: No History of abuse Psych History: Hx of Anxiety, Hx of Depression Smoking Status: Never smoker Have you smoked in the past 12 months: No Do you dip or chew tobacco: No Alcohol Use: none Drug Use: none - Immunizations Immunizations Up to Date: Yes Hx Pneumococcal Vaccination: Yes History of Influenza Vaccine: Yes Physical Exam - Physical Exam General Appearance: Present: wd/wn, alert, no apparent distress, anxious Respiratory: Present: no respiratory distress, normal breath sounds, lungs clear Cardiovascular/Chest: Present: regular rate, rhythm - LVAD Gastrointestinal/Abdominal: Present: normal bowel sounds, soft, other - LVAD palpable in upper abdomen, slightly tender, no other tenderness Extremity Exam: Present: no edema Neurological Exam: Present: alert, oriented, normal mood/affect Skin Exam: Present: normal color, warm/dry ED Progress - Results and Orders Patient's Lab Results:: I have reviewed the patient's lab results. - Vital Signs Patient's Vital Signs:: I have reviewed the patient's vital signs. Vital Signs: Vital Signs 08/09/17 08/09/17 08/09/17 09:31 11:02 11:25 Temperature 37.0 C Pulse Rate 89 90 87 Respiratory 14 14 14 Rate Blood Pressure 115/67 118/95 114/87 O2 Sat by Pulse 98 94 95 Oximetry - X-Ray X-Ray #1 X-Ray: abdomen - constipation, no acute changes Interpretation: Reviewed by me - Progress/Reassessment Chief Complaint: Abdominal Pain Progress Note-Subjective: 08/09/17 12:27 discussed results with patient and 08/09/17 12:27 call to [facility], discussed with LVAD coordinator Yvette, patient has high anxiety level, currently no indication for acute pathology, [facility] pending, will notify [facility] if elevated 08/09/17 12:40 discussed with patient, comfortable going home discussed constipation vs musculoskeltal pain as cause 08/09/17 13:07 patient was discharged [facility] returns at 531, called Yvette again, will discuss with Dr Morrison, they might have patient come up to [facility] Departure Clinical Impression: Abdominal pain Qualifiers: Abdominal location: epigastric Qualified Code(s): R10.13 - Epigastric pain - Departure Disposition: Home self-care Condition: Stable Additional Instructions: your pain might just be caused by the abdominal muscles as you have no other related symptoms take all your medications as prescribed including the increased dose of bumex follow [facility] Referrals: Leonel Medina DO [Primary Care Provider] -
[2017-08-09 11:48] LABS: Hematocrit 53.2 % (42.0-52.0); Hemoglobin 17.1 gm/dL (13.5-18.0); Mean Cell Volume 85.9 fl (78-100); Mean Corpuscular Hemoglobin 27.6 pg (27-31); Mean Corpuscular Hgb Conc 32.1 g/dl (32-36); Mean Platelet Volume 13.1 fl (6.0-9.5); Neutrophil # 5.1 K/mm3 (1.3-6.0); Neutrophil % 73.1 % (42-75.0); Platelet Count 134 K/mm3 (150-450); Red Blood Count 6.19 M/mm3 (4.7-6.0)
[2017-08-09 12:00] LABS: Albumin * 3.9 gm/dl (3.4-5.0); Anion Gap 13.9 mmol/L (6.8-13.8); Bilirubin, Total 1.1 mg/dL (0.0-1.1); Ca. Corrected For Albumin 9.5 mg/dL (8.4-10.2); Calcium * 9.7 mg/dL (7.9-10.9); Carbon Dioxide 27.5 mmol/L (24-32.6); Potassium 4.4 mmol/L (3.4-4.6); Total Protein 9.7 gm/dL (6.2-8.2)
[2017-08-09 12:33] VITALS: BP 120/79
== END 2017-08-09 12:45 | disposition home or self-care (01) ==
LOC: ER 08:54
DX: Z79.01 Long term (current) use of anticoagulants; K21.9 Gastro-esophageal reflux disease without esophagitis; F41.9 Anxiety disorder, unspecified; R10.13 Epigastric pain; I10 Essential (primary) hypertension; I50.9 Heart failure, unspecified; Z95.811 Presence of heart assist device